=== PATIENT | male | born 1975 | race Caucasian/White ===

== ENCOUNTER 2020-04-07 11:24 | Emergency (ER) | payer OTHER ==
[2020-04-07 11:34] VITALS: RESP 18; TEMP 99
[2020-04-07] MEDS ORDERED: HYDROmorphone 1 MG/ML 1 ML SYRINGE IM STA (11:57)
--- NOTE | 2020-04-07 12:03 | ED ---
Back Pain HPI - General Chief Complaint: Back Pain/Injury Stated Complaint: back pain Time Seen by Provider: 04/07/20 11:40 Source: patient, RN notes reviewed Limitations: no limitations - History of Present Illness Initial Comments: This a 45-year-old male presents emergency Department chief complaint of lumbar back pain with right leg pain. Patient states this has been going on and progressive worsening over the last few weeks. Patient states that he's been seen twice [facility], has seen his PCP 3 times patient states that his been placed on prednisone anti-inflammatories, Flexeril and [place] with no relief of symptoms. Patient states that his only comfortable position is lying flat. Patient states that he has no associated weakness denies any bowel, bladder incontinence or retention he states occasionally has some right leg paresthesias no saddle anesthesias. Patient states pain rates only down his right leg to his toes. Patient states that he's had multiple visits with no imaging. Patient was seen last night and requested imaging and was told to go to another facility. Patient denies any dysuria no abdominal pain. Patient's had no prior surgeries. - Related Data Previous Rx's Medication Instructions Recorded HYDROcodone/APAP 10-325MG [[place] 1 tab PO Q6HR PRN 3 Days #12 tab 04/07/20 10-325] Ibuprofen [Motrin] 800 mg PO Q6HR #30 tab 04/07/20 diazePAM [Valium] 5 mg PO TID PRN 3 Days #9 tab 04/07/20 Allergies Allergy/AdvReac Type Severity Reaction Status Date / Time No Known Allergies Allergy Verified 04/07/20 11:33 Review of Systems ROS Statement: Those systems with pertinent positive or pertinent negative responses have been documented in the HPI. ROS Other: All systems not noted in ROS Statement are negative. Past Medical History Past Medical History: No Reported History History of Any Multi-Drug Resistant Organisms: None Reported Past Surgical History: No Surgical Hx Reported Past Psychological History: No Psychological Hx Reported Smoking Status: Never smoker Past Alcohol Use History: Occasional Past Drug Use History: None Reported General Exam Limitations: no limitations General appearance: alert, in no apparent distress Head exam: Present: atraumatic, normocephalic, normal inspection Eye exam: Present: normal appearance, PERRL, EOMI. Absent: scleral icterus, conjunctival injection, periorbital swelling ENT exam: Present: normal exam, normal oropharynx, mucous membranes moist Neck exam: Present: normal inspection, full ROM. Absent: tenderness, meningismus, lymphadenopathy Respiratory exam: Present: normal lung sounds bilaterally. Absent: respiratory distress, wheezes, rales, rhonchi, stridor Cardiovascular Exam: Present: regular rate, normal rhythm, normal heart sounds. Absent: systolic murmur, diastolic murmur, rubs, gallop, clicks GI/Abdominal exam: Present: soft, normal bowel sounds. Absent: distended, tenderness, guarding, rebound, rigid Extremities exam: Present: other (Lower extremity strength equal bilaterally, neurovascular intact no swelling no erythema clinical equal warmth) Back exam: Present: normal inspection, full ROM (Moderate discomfort with any range of motion), tenderness, paraspinal tenderness (Right lumbar). Absent: vertebral tenderness Neurological exam: Present: alert, oriented X3, CN II-XII intact, reflexes normal. Absent: motor sensory deficit Skin exam: Present: warm, dry, intact, normal color. Absent: rash Course Vital Signs 04/07/20 04/07/20 11:28 13:08 Temperature 99 F Pulse Rate 96 Respiratory 18 18 Rate Blood Pressure 131/83 120/78 O2 Sat by Pulse 100 100 Oximetry Medical Decision Making - Medical Decision Making 45-year-old presented for low back pain. Patient has no red flag symptoms. Neurologically intact does have some radicular symptoms on his right leg. CT is obtained which shows evidence of multilevel disc bulging. Patient's case discussed with on-call orthopedic. Patient will follow-up in office. Patient will be discharged in stable condition return parameters were discussed. Disposition Clinical Impression: Bulging of lumbar intervertebral disc, Lumbar radiculopathy Disposition: HOME SELF-CARE Condition: Fair Instructions (If sedation given, give patient instructions): Acute Low Back Pain (ED) Additional Instructions: Please return to the Emergency Department if symptoms worsen or any other concerns. Prescriptions: Ibuprofen [Motrin] 800 mg PO Q6HR #30 tab HYDROcodone/APAP 10-325MG [[place] 10-325] 1 tab PO Q6HR PRN 3 Days #12 tab PRN Reason: pain diazePAM [Valium] 5 mg PO TID PRN 3 Days #9 tab PRN Reason: spasms Is patient prescribed a controlled substance at d/c from ED?: Yes When asked, does pt state using other controlled substances?: No If prescribed controlled substance>3 days was MAPS reviewed?: Prescribed <3 Days If opioid is for acute pain is fill amount 7 days or less?: Yes If Rx opioid, was Start Talking consent form obtained?: Yes Referrals: Ez Walker MD [Primary Care Provider] - 1-2 days Michael Terrazas DO [Doctor of Osteopathic Medicine] - 1-2 days Time of Disposition: 14:19
[2020-04-07] MEDS ORDERED: DIAZEPAM 5 MG/ML 2 ML INJ IM STA (12:55)
--- NOTE | 2020-04-07 13:09 | CT ---
EXAMINATION TYPE: CT lumbar spine wo con DATE OF EXAM: 04/07/2020 COMPARISON: None HISTORY: 45-year-old male Right sided back pain with radiating pain down the leg without injury. TECHNIQUE: Contiguous axial scanning of the lumbar spine without IV contrast. Coronal and sagittal re constructions performed. CT DLP: 1703.4 mGycm Automated exposure control for dose reduction was used. FINDINGS: Vertebral body heights are preserved and alignment is maintained. Mild disc bulging at multiple levels, largest at L3-L4. No evidence spinal canal stenosis by CT. Possible right intraforaminal disc protrusion at L5-S1 abutting the exiting right L5 nerve root. Disc osteophyte complex here results in mild overall neuroforaminal stenosis here. No prevertebral or paravertebral soft tissue abnormality. IMPRESSION: 1. NO VERTEBRAL COMPRESSION COLLAPSE OR MALALIGNMENT. 2. MILD DISC BULGING AT MULTIPLE LEVELS, LARGEST AT L3-L4 WITHOUT SPINAL CANAL STENOSIS. 3. POSSIBLE RIGHT FORAMINAL DISC PROTRUSION AT L5-S1 WHICH COULD ABUT THE EXITING RIGHT L5 NERVE ROOT . CORRELATE FOR APPROPRIATE RADICULAR SYMPTOMS.
[2020-04-07] MEDS ORDERED: oxyCODONE-APAP 5-325MG 1 EACH TAB PO STA (14:20)
[2020-04-07 14:37] VITALS: BP 120/75; PULSE 67
== END 2020-04-07 14:36 | disposition home or self-care (01) ==
LOC: EC 11:24
DX: M51.26 Other intervertebral disc displacement, lumbar region (principal); M54.16 Radiculopathy, lumbar region
CPT/HCPCS: 72131; 99283; 96372 ×2; J3360; J1170

== ENCOUNTER 2020-04-08 06:44 | Observation (INO) | payer OTHER ==
[2020-04-08] MEDS ORDERED: SODIUM CHLORIDE 0.9% 500 ML 500 ML IV ONE (07:16)
[2020-04-08] MEDS ORDERED: HYDROmorphone 1 MG/ML 1 ML SYRINGE IVP STA ×2 (07:16→08:21)
[2020-04-08] MEDS ORDERED: DEXAMETHASONE SOD PHOSPHATE 10 MG/ML 1 ML VIAL IV STA (07:16)
[2020-04-08] MEDS ORDERED: DIAZEPAM 5 MG/ML 2 ML INJ IVP STA (07:18)
[2020-04-08 07:43] LABS: Basophils # (A) 0.1 k/uL (0-0.2); Basophils % (A) 1 %; Eosinophils # (A) 0.2 k/uL (0-0.7); Eosinophils % (A) 3 %; HCT 50.4 % (39.0-53.0); HGB 16.4 gm/dL (13.0-17.5); Lymphocytes # (A) 1.9 k/uL (1.0-4.8); Lymphocytes % (A) 21 %; MCH 29.9 pg (25.0-35.0); MCHC 32.4 g/dL (31.0-37.0); MCV 92.2 fL (80.0-100.0); Mean Platelet Volume 6.2; Monocytes # (A) 0.4 k/uL (0-1.0); Monocytes % (A) 5 %; Neutrophils # (A) 6.3 k/uL (1.3-7.7); Neutrophils % (A) 70 %; Platelet Count 318 k/uL (150-450); RBC 5.47 m/uL (4.30-5.90); RDW 12.5 % (11.5-15.5); WBC 8.9 k/uL (3.8-10.6)
[2020-04-08 07:54] LABS: African American GFR (CKD) >90 (>60 ml/min/1.73 sqM); Anion Gap 8 mmol/L; Blood Urea Nitrogen 20 mg/dL (9-20); Calcium 9.3 mg/dL (8.4-10.2); Carbon Dioxide 27 mmol/L (22-30); Chloride 101 mmol/L (98-107); Glucose 108 mg/dL (74-99); Non-African American GFR(CKD) >90 (>60 ml/min/1.73 sqM); Potassium 4.2 mmol/L (3.5-5.1); Sodium 136 mmol/L (137-145)
--- NOTE | 2020-04-08 07:58 | ED ---
General Adult HPI - General Chief complaint: Back Pain/Injury Stated complaint: back pain Time Seen by Provider: 04/08/20 07:06 Source: patient, RN notes reviewed, old records reviewed Mode of arrival: wheelchair - History of Present Illness Initial comments: 45-year-old male presenting for evaluation of back pain. Patient has had back pain which is been worsening over the past several weeks. He denies any specific injury. He's been seen at multiple hospitals including this institution for back pain. He was seen here yesterday and CT of the lumbar spine was performed which showed some multilevel disc disease. Patient states he was discharged after receiving [place], Motrin and Valium. He states that his symptoms were momentarily improved however after these medications were off he was unable to ambulate. He was brought in by his mother and father and was essentially unable to move secondary to the pain. He does report radicular symptoms to the right lateral leg. No bowel or bladder dysfunction. No lower extremity weakness. - Related Data Previous Rx's Medication Instructions Recorded HYDROcodone/APAP 10-325MG [[place] 1 tab PO Q6HR PRN 3 Days #12 tab 04/07/20 10-325] Ibuprofen [Motrin] 800 mg PO Q6HR #30 tab 04/07/20 diazePAM [Valium] 5 mg PO TID PRN 3 Days #9 tab 04/07/20 Allergies Allergy/AdvReac Type Severity Reaction Status Date / Time No Known Allergies Allergy Verified 04/07/20 11:33 Review of Systems ROS Statement: Those systems with pertinent positive or pertinent negative responses have been documented in the HPI. ROS Other: All systems not noted in ROS Statement are negative. Past Medical History Past Medical History: No Reported History Additional Past Medical History / Comment(s): buldging discs History of Any Multi-Drug Resistant Organisms: None Reported Past Surgical History: No Surgical Hx Reported Past Psychological History: No Psychological Hx Reported Smoking Status: Never smoker Past Alcohol Use History: Occasional Past Drug Use History: None Reported General Exam General appearance: alert, in distress Head exam: Present: atraumatic, normocephalic Eye exam: Present: normal appearance, PERRL ENT exam: Present: normal exam Neck exam: Present: normal inspection. Absent: tenderness, meningismus Respiratory exam: Present: normal lung sounds bilaterally. Absent: respiratory distress, wheezes Cardiovascular Exam: Present: regular rate, normal rhythm GI/Abdominal exam: Present: soft. Absent: distended, tenderness, guarding Extremities exam: Present: normal inspection, normal capillary refill Back exam: Present: paraspinal tenderness Neurological exam: Present: alert, oriented X3, CN II-XII intact, other (Patellar reflexes are diminished bilaterally). Absent: motor sensory deficit Psychiatric exam: Present: normal affect, normal mood Skin exam: Present: warm, dry, intact. Absent: cyanosis, diaphoretic Course Vital Signs 04/08/20 07:02 Temperature 98.7 F Pulse Rate 80 Respiratory 18 Rate Blood Pressure 136/87 O2 Sat by Pulse 100 Oximetry Medical Decision Making - Medical Decision Making 45-year-old male presenting with recurrent back pain. Patient has had worsening back pain over the past [address] lumbar spine yesterday at this institution which showed multilevel disc bulging and nerve root compression at L5 consistent with the patient's radicular symptoms. Patient has been on [place], Motrin, Valium with basically no relief. In the emergency department and receives Toradol, Valium, Dilaudid, Decadron, multiple doses without improvement. He will be admitted for pain control and orthopedic consultation. - Lab Data Result diagrams: 04/08/20 07:30 04/08/20 07:30 Lab Results 04/08/20 04/08/20 Range/Units 07:30 07:30 WBC 8.9 (3.8-10.6) k/uL RBC 5.47 (4.30-5.90) m/uL Hgb 16.4 (13.0-17.5) gm/dL Hct 50.4 (39.0-53.0) % MCV 92.2 (80.0-100.0) fL MCH 29.9 (25.0-35.0) pg MCHC 32.4 (31.0-37.0) g/dL RDW 12.5 (11.5-15.5) % Plt Count 318 (150-450) k/uL Neutrophils % 70 % Lymphocytes % 21 % Monocytes % 5 % Eosinophils % 3 % Basophils % 1 % Neutrophils # 6.3 (1.3-7.7) k/uL Lymphocytes # 1.9 (1.0-4.8) k/uL Monocytes # 0.4 (0-1.0) k/uL Eosinophils # 0.2 (0-0.7) k/uL Basophils # 0.1 (0-0.2) k/uL Sodium 136 L (137-145) mmol/L Potassium 4.2 (3.5-5.1) mmol/L Chloride 101 (98-107) mmol/L Carbon Dioxide 27 (22-30) mmol/L Anion Gap 8 mmol/L BUN 20 (9-20) mg/dL Creatinine 0.91 (0.66-1.25) mg/dL Est GFR (CKD-EPI)AfAm >90 (>60 ml/min/1.73 sqM) Est GFR (CKD-EPI)NonAf >90 (>60 ml/min/1.73 sqM) Glucose 108 H (74-99) mg/dL Calcium 9.3 (8.4-10.2) mg/dL Disposition Clinical Impression: Bulging of lumbar intervertebral disc, Lumbar radiculopathy, Intractable back pain Disposition: ADMITTED IP TO THIS [facility] Condition: Stable Is patient prescribed a controlled substance at d/c from ED?: No Referrals: Ez Walker MD [Primary Care Provider] - 1-2 days Decision to Admit Reason: Admit from EC Decision Date: 04/08/20 Decision Time: 08:25
[2020-04-08] MEDS ORDERED: ACETAMINOPHEN TAB 325 MG TAB PO PRN (08:21)
[2020-04-08] MEDS ORDERED: KETOROLAC 15 MG/ML 1 ML VIAL IVP PRN (08:21)
[2020-04-08] MEDS ORDERED: NALOXONE 0.4 MG/ML 1 ML VIAL IV PRN (08:21)
[2020-04-08] MEDS ORDERED: KETOROLAC 15 MG/ML 1 ML VIAL IVP STA (08:21)
[2020-04-08] MEDS ORDERED: HYDROmorphone 0.5 MG/0.5 ML SYRINGE IVP PRN (08:21)
[2020-04-08] MEDS ORDERED: DIAZEPAM 5 MG/ML 2 ML INJ IVP PRN (08:23)
[2020-04-08 08:43] LABS: Appearance,Urine Clear (Clear); Bilirubin,Urine Negative (Negative); Blood,Urine Negative (Negative); Color,Urine Light Yellow; Glucose,Urine (UA) Negative (Negative); Ketones,Urine Negative (Negative); Leukocyte Esterase,Urine Negative (Negative); Nitrite,Urine Negative (Negative); PH, Urine 6.5 (5.0-8.0); Protein,Urine Negative (Negative); Specific Gravity,Urine 1.011 (1.001-1.035); Urobilinogen,Urine <2.0 mg/dL (<2.0)
[2020-04-08] MEDS ORDERED: HYDROcodone/APAP 10-325MG 1 EACH TAB PO PRN (10:36)
[2020-04-08] MEDS ORDERED: CYCLOBENZAPRINE 10 MG TAB PO PRN (10:36)
[2020-04-08] MEDS: HYDROmorphone 1 MG/ML 1 ML SYRINGE IVP PRN ×3 (10:42→21:01)
[2020-04-08] MEDS: HYDROcodone/APAP 5-325MG 1 EACH TAB PO SCH ×3 (12:00→17:11)
[2020-04-08] MEDS: FAMOTIDINE 20 MG TAB PO SCH ×2 (12:01→21:01)
[2020-04-08] MEDS: CYCLOBENZAPRINE 10 MG TAB PO SCH ×3 (12:01→21:01)
[2020-04-08] MEDS: NAPROXEN 250 MG TAB PO SCH ×3 (12:02→21:02)
[2020-04-08] MEDS: ENOXAPARIN 40 MG/0.4 ML SYRINGE SQ SCH (12:04)
--- NOTE | 2020-04-08 14:18 | XR ---
Pre-MRI orbits HISTORY: Pre-MRI, intractable back pain, right lower extremity radiculopathy 3 views of the orbits Bone mineralization is maintained. Orbits are intact. No fluid level in the paranasal sinuses to sugg est acute sinusitis. IMPRESSION: No radiographic foreign body.
--- NOTE | 2020-04-08 15:11 | P.CNOR ---
History of Present Illness - [facility] Consult date: 04/08/20 Consult reason: low back pain History of present illness: This is a 45-year-old male who is admitted through the emergency department with acute onset severe intractable low back pain with right lower extremity ra diculopathy. Patient states that he has no known history of back issues. About 2-3 weeks ago he began experiencing some low back pain. 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 He does not recall any acute injury or trauma. He states that his pain became worse over the past week or so. He was no longer able to ambulate secondary to pain and began having numbness and tingling down the right leg. He denies any bladder or bowel dysfunction. He is admitted to internal medicine and we're consulted for orthopedic spine evaluation. Past Medical History Past Medical History: No Reported History Additional Past Medical History / Comment(s): buldging discs History of Any Multi-Drug Resistant Organisms: None Reported Past Surgical History: No Surgical Hx Reported Past Anesthesia/Blood Transfusion Reactions: No Reported Reaction Additional Past Anesthesia/Blood Transfusion Reaction / Comm: N/A Past Psychological History: No Psychological Hx Reported Smoking Status: Never smoker Past Alcohol Use History: Occasional Past Drug Use History: None Reported - Past Family History Father Additional Family Medical History / Comment(s): Auto-Immune Disorder (similar to Lupus) Mother Family Medical History: AFIB Medications and Allergies Home Medications Medication Instructions Recorded Confirmed Type HYDROcodone/APAP 10-325MG [[place] 1 tab PO Q6HR PRN 3 Days #12 tab 04/07/20 04/08/20 Rx 10-325] Ibuprofen [Motrin] 800 mg PO Q6HR #30 tab 04/07/20 04/08/20 Rx diazePAM [Valium] 5 mg PO TID PRN 3 Days #9 tab 04/07/20 04/08/20 Rx Citalopram Hydrobromide 20 mg PO Q48H 04/08/20 04/08/20 History [Citalopram HBr] Cyclobenzaprine HCl 10 mg PO TID PRN 04/08/20 04/08/20 History Allergies Allergy/AdvReac Type Severity Reaction Status Date / Time No Known Allergies Allergy Verified 04/07/20 11:33 Physical Examination This is a pleasant 45-year-old male in no acute distress. He is alert and shannan ented 3. Exam of the head neck reveal no obvious deformity. He has full cervical spine motion without difficulty or pain. Exam of the upper extremities reveals no obvious deformity. He has no pain with motion of the shoulders, elbows, wrists or fingers. Exam of the low back reveals deformity. He has mild pain to palpation about the lower lumbar spine and right sided paraspinal musculature. Straight leg raise is positive, producing pain to the right buttock. Exam of the lower extremities reveals no obvious deformity. He is able to lift the right leg off the bed about an inch with significant pain. He has weakness with the great toe dorsiflexion against resistance compared to the left foot. He is able to wiggle foot and ankle and toes bilaterally. Neurovascular status to the lower extremities grossly intact. Results Computed tomography scan of the lumbar spine performed in the emergency Department reveals some disc bulging at multiple levels as well as a possible foraminal encroachment at L5-S1. No acute fractures identified. - Labs Labs: Abnormal Lab Results - Last 24 Hours (Table) 04/08/20 Range/Units 07:30 Sodium 136 L (137-145) mmol/L Glucose 108 H (74-99) mg/dL H & H 04/08/20 Range/Units 07:30 Hgb 16.4 (13.0-17.5) gm/dL Hct 50.4 (39.0-53.0) % Result Diagrams: 04/08/20 07:30 04/08/20 07:30 Assessment and Plan (1) Bulging of lumbar intervertebral disc Current Visit: Yes Status: Acute Code(s): M51.26 - OTHER INTERVERTEBRAL DISC DISPLACEMENT, LUMBAR REGION SNOMED Code(s): 624867046 (2) Intractable back pain Current Visit: Yes Status: Acute Code(s): M54.9 - DORSALGIA, UNSPECIFIED SNOMED Code(s): 480990003 (3) Lumbar radiculopathy Current Visit: Yes Status: Acute Code(s): M54.16 - RADICULOPATHY, LUMBAR REGION SNOMED Code(s): 085570733 Plan: The clinical and radiographic findings are discussed with the patient. It is recommended he have an MRI for further evaluation for possible herniated disc. I have increased the site Medrol to 80 mg every 8 hours 3 doses. We will await MRI results and proceed as indicated at that time.
[2020-04-08] MEDS ORDERED: methylPREDNISolone SOD SUCCI 40 MG/ML 1 ML VIAL IV SCH (16:00)
[2020-04-08] MEDS: methylPREDNISolone SOD SUCCI 125 MG/2 ML VIAL IV SCH (17:10)
--- NOTE | 2020-04-08 19:57 | P.HPIM ---
History of Present Illness H&P Date: 04/08/20 Chief Complaint: Increasing low back pain History of presenting complaint: This is a very pleasant 45-year-old patient of Dr. Ez Walker. Patient's had occasional low back pain off and on for some time. For 3 weeks patient been having progressively increasing lower back pain. About 2 weeks ago patient went to the chiropractor had some end ablation done. [place] a bit better. But a couple of days. Become much worse and by Wednesday was finding it difficult to walk. Subsequently he went to [place] [facility] week ago was given steroids antispasmodic and inflammatory central. Some improvement in those symptoms currently to get worse then. Started having some trouble walking with pain radiating from the right buttock area down to the toe. No trouble with bowel or urine. No fever no chills. Has presented to ER. Yesterday. Had a computed tomography scan of the spine done. Discharged home with medications. Return to the ER this morning. With worsening symptoms. Review of systems: GEN.: None EYES: None HEENT: None NECK: None RESPIRATORY: None CARDIOVASCULAR: None GASTROINTESTINAL: None GENITOURINARY: None MUSCULOSKELETAL: As above LYMPHATICS: None HEMATOLOGICAL: None PSYCHIATRY: None NEUROLOGICAL: Pain down the right leg some difficulty walking Past medical history: Intermittent chronic low back pain Social history: Lives with his fiance Adri. Does not smoke. 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 Physical examination: VITAL SIGNS: 98.7, 80, 18, 136/87, 100% on room air upon admission GENERAL: BMI 28.6, laying in bed, somewhat uncomfortable. EYES: Pupils equal. Conjunctiva normal. HEENT: External appearance of nose and ears normal, oral cavity grossly normal. NECK: JVD not raised; masses not palpable. HEART: First and second heart sounds are normal; no edema. LUNGS: Respiratory rate normal; clear to auscultation. ABDOMEN: Soft, nontender, liver spleen not palpable, no masses palpable. PSYCH: Alert and oriented x3; mood and affect normal MUSCULAR skeletal: Limited bilateral left leg elevation.. NEUROLOGICAL: [Cranial nerves grossly intact; no facial asymmetry, some elevation able to lift his legs. Knee reflexes are equal LYMPHATICS: No lymph nodes palpable in the axilla and neck INVESTIGATIONS, reviewed in the clinical context: White count 8.9 hemoglobin 16.4 platelets 318 potassium 4.2 creatinine 0.91 UA negative Computed tomography scan of the spine without contrast-mild disc bulging at multiple level largest at L3-L4 without spinal canal stenosis. Possible right forearm and on this protrusion at L5-S1. Assessment: -Acute low back pain from ID and disc at multiple levels patient. L3-L4 level. Also forearm and now pressure at with protrusion at L5-S1 with right lower extremity that radicalur pain -Gait dysfunction from above - Plan: Patient will need an MRI. Orthopedic spine was consulted. Patient started IV Solu-Medrol, naproxen, antispasmodic. Care was discussed the patient question also. Lovenox for DVT prophylaxis. Past Medical History Past Medical History: No Reported History Additional Past Medical History / Comment(s): buldging discs History of Any Multi-Drug Resistant Organisms: None Reported Past Surgical History: No Surgical Hx Reported Past Psychological History: No Psychological Hx Reported Smoking Status: Never smoker Past Alcohol Use History: Occasional Past Drug Use History: None Reported - Past Family History Father Additional Family Medical History / Comment(s): Auto-Immune Disorder (similar to Lupus) Mother Family Medical History: AFIB Medications and Allergies Home Medications Medication Instructions Recorded Confirmed Type HYDROcodone/APAP 10-325MG [[place] 1 tab PO Q6HR PRN 3 Days #12 tab 04/07/20 Rx 10-325] Ibuprofen [Motrin] 800 mg PO Q6HR #30 tab 04/07/20 04/08/20 Rx diazePAM [Valium] 5 mg PO TID PRN 3 Days #9 tab 04/07/20 04/08/20 Rx Citalopram Hydrobromide 20 mg PO Q48H 04/08/20 04/08/20 History [Citalopram HBr] Cyclobenzaprine HCl 10 mg PO TID PRN 04/08/20 04/08/20 History Allergies Allergy/AdvReac Type Severity Reaction Status Date / Time No Known Allergies Allergy Verified 04/07/20 11:33 Physical Exam Vitals: Vital Signs Temp Pulse Pulse Resp BP BP Pulse Ox 04/08/20 10:34 98.1 F 72 19 135/81 99 04/08/20 09:06 98.7 F 73 18 121/74 99 04/08/20 08:08 70 18 121/74 99 04/08/20 07:02 98.7 F 80 18 136/87 100 Intake and Output 04/07/20 04/08/20 04/08/20 22:59 06:59 14:59 Other: Weight 127.006 kg Results CBC & Chem 7: 04/08/20 07:30 04/08/20 07:30 Labs: Abnormal Lab Results - Last 24 Hours (Table) 04/08/20 Range/Units 07:30 Sodium 136 L (137-145) mmol/L Glucose 108 H (74-99) mg/dL
--- NOTE | 2020-04-08 22:01 | MR ---
EXAMINATION TYPE: MR lumbar spine wo con DATE OF EXAM: 04/08/2020 COMPARISON: CT lumbar spine from yesterday. HISTORY: Intractable low back pain TECHNIQUE: Multiplanar, multisequence imaging of the lumbar spine is performed without IV contrast. FINDINGS: Slight levoconvex scoliotic curvature positioning is redemonstrated. Sagittal images of the lumbar spine show vertebral body heights to remain satisfactory. Loss of normal lumbar lordosis on s agittal images. Some multilevel disc desiccation greatest L4-L5 level. Mild to moderate disc space na rrowing L5-S1 level. The conus medullaris is normal in position and signal ending superior L1 level. The bone marrow signal intensity is within normal limits. Axial images show T12-L1, L1-L2, and L2-L3 levels al to appear within normal limits. Axial images at L3-L4 level shows mild broad-based disc bulge but the spinal canal is preserved and b ilateral neural foramina are patent. Axial images at L4-L5 level are thought within normal limits. Axial images at L5-S1 level shows mild facet arthropathy bilaterally. Spinal canal is preserved as is increased epidural fat at this level. There is eccentric focal right foraminal/extraforaminal disc p rotrusion confirmed encroaching on exiting right L5 nerve sagittal images 13 and 14 and axial image 3 . Paraspinal muscle bulk is maintained. Retroaortic left renal vein redemonstrated which is normal vari ant. Slightly prominent but subcentimeter left-sided periaortic lymph nodes again seen. IMPRESSION: Confirmation of eccentric right L5-S1 disc herniation encroaching on exiting right L5 ner ve.
[2020-04-09] MEDS: HYDROcodone/APAP 5-325MG 1 EACH TAB PO SCH ×3 (00:47→12:09)
[2020-04-09] MEDS: methylPREDNISolone SOD SUCCI 125 MG/2 ML VIAL IV SCH ×2 (00:47→08:40)
[2020-04-09] MEDS: HYDROmorphone 1 MG/ML 1 ML SYRINGE IVP PRN (04:47)
[2020-04-09 04:58] VITALS: RESP 16
--- NOTE | 2020-04-09 08:05 | P.PN ---
Progress Note - Text Progress Note Date: 04/09/20 He is still complaining significant pain and right lower extremity. He says the pain may have settled a little bit since yesterday with medications of steroid and the Dilaudid. He is able to void he is not having specific weakness at this point. He denies any nausea or vomiting. On exam he's afebrile stable vital signs Is positive straight leg raise on the right He has sustained dorsal flexion plantar flexion and EHL His calf and thighs is soft nontender His back is clear The MRI of his lumbar spine shows a L5-S1 far lateral subarticular disc herniation with stenosis at the exiting nerve root Assessment and plan Far lateral disc herniation L5-S1 Right lower extremity radiculopathy Intractable low back pain and leg pain The patient has a significant part lateral disc herniation L5-S1 which correlates well with his lower extremity symptoms. He is not having significant weakness at this point and I think he can make some further progress with conservative treatment. He has made some progress with IV steroid and education. It is okay for him to mobilize as he tolerates. I think he can do better with an interventional pain management injection likely with a L5-S1 transforaminal epidural steroid injection. Hopefully he'll be able to do that today with pain management. We have consult them. He'll be nothing by mouth in case he is able to have a procedure. If he is doing well with conservative treatment and interventional pain management and he can consider continuing conservative care. If he is not having benefit he could be a candidate for laminectomy and discectomy. We like to hold off on surgical intervention acutely and plan to see him as an outpatient to consider other treatments based on how well he does with further conservative care. I discussed this with him answers questions and he is agreeable.
[2020-04-09] MEDS: FAMOTIDINE 20 MG TAB PO SCH ×2 (08:40→10:06)
[2020-04-09] MEDS: CYCLOBENZAPRINE 10 MG TAB PO SCH ×2 (08:40→15:14)
[2020-04-09] MEDS: ENOXAPARIN 40 MG/0.4 ML SYRINGE SQ SCH ×2 (08:41→10:06)
[2020-04-09] MEDS ORDERED: CITALOPRAM HYDROBROMIDE 20 MG TAB PO SCH (09:00)
[2020-04-09] MEDS: NAPROXEN 250 MG TAB PO SCH ×2 (10:07→15:14)
--- NOTE | 2020-04-09 10:31 | P.PAINCN ---
History of Present Illness - Reason for Consult Consult date: 04/09/20 - History of Present Illness This is 45 years old male,who is admitted to [facility] because ofsevere intractable low back pain started 3 weeks ago, the intensity of the pain increased over the last few days, the pain severely intense localized in the low back area with radiation to the right lower extremity, associated with some numbness and tingling sensation, patient denies any initiating event, no history of trauma low accident, but she reported that he does a lot of lifting at work, he denies any fever or night sweats was no change in the bowel movement or urination, MRI of the lumbar spine showed that he had a lumbar herniated disc disease at L5-S1 Past Medical History Past Medical History: No Reported History Additional Past Medical History / Comment(s): buldging discs History of Any Multi-Drug Resistant Organisms: None Reported Past Surgical History: No Surgical Hx Reported Past Anesthesia/Blood Transfusion Reactions: No Reported Reaction Additional Past Anesthesia/Blood Transfusion Reaction / Comm: N/A Past Psychological History: No Psychological Hx Reported Smoking Status: Never smoker Past Alcohol Use History: Occasional Past Drug Use History: None Reported - Past Family History Father Additional Family Medical History / Comment(s): Auto-Immune Disorder (similar to Lupus) Mother Family Medical History: AFIB Medications and Allergies Home Medications Medication Instructions Recorded Confirmed Type HYDROcodone/APAP 10-325MG [[place] 1 tab PO Q6HR PRN 3 Days #12 tab 04/07/20 04/08/20 Rx 10-325] Ibuprofen [Motrin] 800 mg PO Q6HR #30 tab 04/07/20 04/08/20 Rx diazePAM [Valium] 5 mg PO TID PRN 3 Days #9 tab 04/07/20 04/08/20 Rx Citalopram Hydrobromide 20 mg PO Q48H 04/08/20 04/08/20 History [Citalopram HBr] Cyclobenzaprine HCl 10 mg PO TID PRN 04/08/20 04/08/20 History Allergies Allergy/AdvReac Type Severity Reaction Status Date / Time No Known Allergies Allergy Verified 04/07/20 11:33 Physical Exam Vitals: Vital Signs Temp Pulse Resp BP Pulse Ox 04/09/20 04:40 98.2 F 67 16 122/74 97 04/08/20 21:00 98.9 F 75 18 153/74 97 04/08/20 12:34 99 F 69 18 125/79 98 04/08/20 10:34 98.1 F 72 19 135/81 99 Intake and Output 04/08/20 04/09/20 04/09/20 22:59 06:59 14:59 Intake Total 500 250 Balance 500 250 Intake: Oral 500 250 Other: Voiding Method Urinal # Voids 1 2 Physical Examinations : -Constitutiona : Cooperative , not in acute distress . -HEENT : nech : supple , no Lymphadenopathy , normal thyroid size . : eyes : no ptosis , no icterus, no photoph obia . - neurologic : Cranial nerve II to XII intact , no focal neurological deffecit . -psychatric : alert , oriented X 3 , appropriate affect , intact judgment and insight . -Lymphatic : no Lymphadenopathy . - musculoskeltal : Lumber spine moter stegnth lower extremities ,thigh and legs 4-5/5 Right side , 5/5 Left side deep tendon reflexes : normal Knee Jerk , normal ankle Jerk lumber facet Loading Test =positive Right , positive Left Range of motion of the lumbar spine Flexion 30 degrees, extension 10 degrees strait leg raising test = positive at 30 degree on the right side is negative on the left side Fabere test= positive Right , and egative LT . mild tenderness over the Sacroiliac joint on the Right , and Left sides Results CBC & Chem 7: 04/08/20 07:30 04/08/20 07:30 Comments: MRI of the lumbar spine= L5-S1 herniated disc, mild lumbar facet arthropathy Assessment and Plan Plan: assessment and plan=1-lumbar herniated disc disease at L5-S1 2-lumbar radiculopathy. 3-lumbar spondylosis with lumbar facet arthropathy without myelopathy. Patient could benefit from lumbar epidural steroid injection at L5-S1 right paramedian approach Time with Patient: Less than 30 PQRS Measure Charge Sheet PQRS Narrative: Do You Want the Pneumonia No Vaccine AT THIS TIME? Blood Pressure [Left Arm] 122/74 Blood Pressure 121/74 Pain Intensity [Back] 8 Pain Intensity 5 Pain Scale Used Numeric (1 - 10) Scale Used Numeric (1 - 10) Home Medications: Ambulatory Orders HYDROcodone/APAP 10-325MG [[place] 10-325] 1 tab PO Q6HR PRN 3 Days #12 tab 04/07/20 Ibuprofen [Motrin] 800 mg PO Q6HR #30 tab 04/07/20 diazePAM [Valium] 5 mg PO TID PRN 3 Days #9 tab 04/07/20 Citalopram Hydrobromide [Citalopram HBr] 20 mg PO Q48H 04/08/20 Cyclobenzaprine HCl 10 mg PO TID PRN 04/08/20
[2020-04-09 11:15] VITALS: BP 136/74; PULSE 77; TEMP 97.9
[2020-04-09] MEDS ORDERED: LACTATED RINGERS 1,000 ML IV ONE (11:15)
[2020-04-09] MEDS ORDERED: fentaNYL (PF) 50 MCG/ML 2 ML AMP ONE (11:21)
[2020-04-09] MEDS ORDERED: MIDAZOLAM 2 MG/2 ML VIAL ONE (11:21)
[2020-04-09] MEDS ORDERED: methylPREDNISolone ACETATE 40 MG/ML 1 ML VIAL ONE (11:21)
[2020-04-09] MEDS ORDERED: IOPAMIDOL M200 10 ML VIAL ONE (11:21)
--- NOTE | 2020-04-09 11:36 | P.PCN ---
Date of Procedure: 04/09/20 Procedure(s) Performed: PREOPERATIVE DIAGNOSIS: 1- Lumbar herniated Disc Diseases 2-Lumbar spondylosis with Facet arthropathy without myelopathy. 3-lumbar radiculopathy POSTOPERATIVE DIAGNOSIS: 1-Lumber herniatedDisc Diseases 2-Lumbar spondylosis with Facet arthropathy without myelopathy 3-lumbar radiculopathy. PROCEDURE 1. Lumbar epidural steroid injection under fluoroscopic guidance at the L5-S1 level. (right paramedian approach ) (Fluoroscopy imaging was available in radiology department) 2. Lumbar epidurogram. ANESTHESIA: Local with 1% lidocaine 3 ml and , moderate sedation with intravenous Versed 2 mg ,and fentanyle 50 Mcg EBL: Minimal PROCEDURE INDICATION: The patient with low back pain and radiculitis symptoms unresponsive to conservative treatment. Fluoroscopy was used to optimize visualization of the needle placement and to maximize safety. PROCEDURE DESCRIPTION / TECHNIQUE: The patient was seen and identified in the preoperative area. Risks, benefits, complications including but not limited to infections ,bleeding ,allergic reaction to the medications ,nerve damage and not complete pain releife , and alternatives were discussed with the patient. The patient agreed to proceed with the procedure and signed the consent. IV was started, and vital signs were stable. Patient was taken to the OR and time out was completed. The patient was placed in the prone position on procedure table and a pillow was placed under the abdomen to reduce lumbar lordosis. The lumbosacral area was prepped and draped in the usual sterile fashion.ere closely monitored during the procedure. Conscious sedation was used during the procedure to decrease patients anxiety. Vital signs was monitered during the entire procedure. Using anterior-posterior fluoroscopy, the L5-S1 interlaminar space was identified and the skin over this site was marked and then infiltrated with 1% lidocaine subcutaneously. Subsequently, a 20-gauge Tuohy epidural needle was inserted and advanced toward the epidural space using the ``Loss of resistance technique and guided by AP and lateral fluoroscopy. The correct needle position in the epidural space was verified with the injection of 2 mL of the water soluble contrast dye Isovue 200 contrast and observing an excellent epidurogram with the epidural spread of the dye, after negative aspiration for blood and CSF and in the absence of paresthesias. Again after negative aspiration, a 6 ml mixture containing 80 mg of Depo-medrol , and 2 ml of preservative free Normal Saline, and 2 ml of preservative free lidocaine 1% solution was injected and a washout of epidurogram was seen. Needle was withdrawn intact, skin was cleansed, and bandages were applied. COMPLICATIONS: None DISPOSITION / PLANS: The patient was placed in a supine position and transferred to the recovery area in a stable condition for observation. There was no evidence of lower extremity motor or sensory deficit after the procedure. Patient was discharged from the recovery room after meeting discharge criteria. Home discharge instructions were given to the patient by the staff. The patient was reexamined prior to discharge. The patient will schedule a follow up in the clinic in 2-4 weeks.
--- NOTE | 2020-04-09 12:06 | FL ---
EXAMINATION TYPE: FL guided pain mgmt statistic DATE OF EXAM: 04/09/2020 FLUOROSCOPY Fluoroscopy time of 1 seconds was used during lumbar epidural steroid injection. 1 image/s document/ s the procedure.
--- NOTE | 2020-04-09 23:49 | P.DS ---
Providers Date of admission: 04/08/20 08:21 Expected date of discharge: 04/09/20 Attending physician: Abelardo Del Toro Consults: 04/08/20 08:22 Consult Physician Routine Consulting Provider: Luiz Kiser Consult Reason/Comments: Intractable back pain Do you want consulting provider notified?: Yes 04/09/20 07:36 Consult to Anesthesia Routine Consulting Provider: Anesthesia,Services Consult Reason/Comments: for possible L5S1 TF-DAYO for HNP L5S1 Primary care physician: Ez Walker [facility] Course: Chief Complaint: Increasing low back pain History of presenting complaint: This is a very pleasant 45-year-old patient of Dr. Ez Walker. Patient's had occasional low back pain off and on for some time. For 3 weeks patient been having progressively increasing lower back pain. About 2 weeks ago patient went to the chiropractor had some end ablation done. [place] a bit better. But a couple of days. Become much worse and by Wednesday was finding it difficult to walk. Subsequently he went to [facility] week ago was given steroids antispasmodic and inflammatory central. Some improvement in those symptoms currently to get worse then. Started having some trouble walking with pain radiating from the right buttock area down to the toe. No trouble with bowel or urine. No fever no chills. Has presented to ER. Yesterday. Had a computed to mography scan of the spine done. Discharged home with medications. Return to the ER this morning. With worsening symptoms. Patient was treated with steroids, and inflammatory, antispasmodics. Doing better. Today-patient able to walk from his bed to the stretcher on his own. When done for the lumbar epidural. Earlier discussed length with the patient his medications and follow-up. Questions answered. Consultation: Dr. Osorio from orthopedic spine Dr. Miller from pain management Physical examination: VITAL SIGNS: 97.9, 77, 16, 136/74, 98% room air GENERAL: BMI 28.6, laying in bed, comfortable. EYES: Pupils equal. Conjunctiva normal. NECK: JVD not raised; masses not palpable. HEART: First and second heart sounds are normal; no edema. LUNGS: Respiratory rate normal; clear to auscultation. ABDOMEN: Soft, nontender, liver spleen not palpable, no masses palpable. PSYCH: Alert and oriented x3; mood and affect normal NEUROLOGICAL-witnessed the patient get up from the bed walk to the stretcher. INVESTIGATIONS, reviewed in the clinical context: White count 8.9 hemoglobin 16.4 platelets 318 potassium 4.2 creatinine 0.91 UA negative Computed tomography scan of the spine without contrast-mild disc bulging at multiple level largest at L3-L4 without spinal canal stenosis. Possible right forearm and on this protrusion at L5-S1. MRI lumbar spine shows a centric right L5-S1 disc herniation encroaching on right L5 nerve. Some of the findings of the levels more detail in the chart. Assessment: -Acute low back pain from herniated disc at multiple levels patient. L3-L4 level. pressure at with protrusion at L5-S1 with right lower extremity - radicalur pain -Gait dysfunction from above-improving -Status post epidural lumbar injection- steroid Disposition: Home Patient Condition at Discharge: Stable Plan - Discharge Summary Discharge Rx Participant: No New Discharge Prescriptions: New Naproxen [Naprosyn] 250 mg PO TID #60 tab Famotidine [Pepcid] 20 mg PO BID #60 tab Acetaminophen Tab [Tylenol] 650 mg PO Q6HR PRN tab PRN Reason: Mild Pain Or Fever > 100.5 predniSONE 10 mg PO DAILY #30 tab Continue HYDROcodone/APAP 10-325MG [[place] 10-325] 1 tab PO Q6HR PRN 3 Days #12 tab PRN Reason: pain Citalopram Hydrobromide [Citalopram HBr] 20 mg PO Q48H Changed Cyclobenzaprine HCl 10 mg PO TID #40 tab Discontinued Ibuprofen [Motrin] 800 mg PO Q6HR #30 tab diazePAM [Valium] 5 mg PO TID PRN 3 Days #9 tab PRN Reason: spasms Discharge Medication List HYDROcodone/APAP 10-325MG [[place] 10-325] 1 tab PO Q6HR PRN 3 Days #12 tab [Rx] Citalopram Hydrobromide [Citalopram HBr] 20 mg PO Q48H 04/08/20 [History] Acetaminophen Tab [Tylenol] 650 mg PO Q6HR PRN tab 04/09/20 [Rx] Cyclobenzaprine HCl 10 mg PO TID #40 tab 04/09/20 [Rx] Famotidine [Pepcid] 20 mg PO BID #60 tab 04/09/20 [Rx] Naproxen [Naprosyn] 250 mg PO TID #60 tab 04/09/20 [Rx] predniSONE 10 mg PO DAILY #30 tab 04/09/20 [Rx] Follow up Appointment(s)/Referral(s): Luiz Ksier DO [Doctor of Osteopathic Medicine] - 04/16/20 1:15 pm Gene Garcia [facility] [REFERRING] - 04/17/20 10:30 am [facility] [NON-STAFF] - 3 Weeks (pt to call to make appt) Patient Instructions/Handouts: Famotidine (By mouth), Naproxen (By mouth), Prednisone (By mouth), Cyclobenzaprine (By mouth), Back Pain (GEN) Discharge/Stand Alone Forms: Anes Pain/[place] Instructions Discharge Disposition: HOME SELF-CARE
== END 2020-04-09 15:59 | disposition home or self-care (01) ==
LOC: EC 06:44 → 6NMEDSUR 08:21
PROVIDERS: ADMIT Hospitalist; ATTEND Hospitalist
DX: M51.16 Intervertebral disc disorders with radiculopathy, lumbar region (principal); M47.26 Other spondylosis with radiculopathy, lumbar region; M48.061 Spinal stenosis, lumbar region without neurogenic claudication; R26.2 Difficulty in walking, not elsewhere classified
CPT/HCPCS: 62323; 96376 ×3; 96372; 96375 ×2; 96361; 96374; 99285; 36415; 80048; 85025; 81003; 70030; 72148; G0378 ×2; J2250; J1030; J1100; J2930 ×2; J3360; J1650; J3010; J1170 ×3; J1885; Q9966

== ENCOUNTER 2020-05-07 12:07 | Day surgery (SDC) | payer OTHER ==
[2020-05-03 15:45] VITALS: BMI 36.9
[2020-05-07 12:29] VITALS: RESP 16; TEMP 97.2
[2020-05-07] MEDS ORDERED: IOPAMIDOL M200 10 ML VIAL ONE (12:38)
[2020-05-07] MEDS ORDERED: TRIAMCINOLONE ACETONIDE 40 MG/ML 1 ML VIAL ONE (12:38)
[2020-05-07] MEDS ORDERED: SODIUM CHLORIDE 0.9% (PF) 10 ML VIAL ONE (12:38)
[2020-05-07] MEDS ORDERED: LIDOCAINE 1% INJ 10MG/ML (20 ML MDV) ONE (12:38)
--- NOTE | 2020-05-07 12:55 | P.PCN ---
Date of Procedure: 05/07/20 Description of Procedure: PREOPERATIVE DIAGNOSIS: 1- Lumbar herniated Disc Diseases 2-Lumbar spondylosis with Facet arthropathy without myelopathy. 3-lumbar radiculopathy POSTOPERATIVE DIAGNOSIS: 1-Lumber herniatedDisc Diseases 2-Lumbar spondylosis with Facet arthropathy without myelopathy 3-lumbar radiculopathy. PROCEDURE 1. Lumbar epidural steroid injection under fluoroscopic guidance at the L5-S1 level. (right paramedian approach ) (Fluoroscopy imaging was available in radiology department) 2. Lumbar epidurogram. ANESTHESIA: Local with 1% lidocaine 3 ml EBL: Minimal PROCEDURE INDICATION: The patient with low back pain and radiculitis symptoms unresponsive to conservative treatment. Fluoroscopy was used to optimize visualization of the needle placement and to maximize safety. PROCEDURE DESCRIPTION / TECHNIQUE: The patient was seen and identified in the preoperative area. Risks, benefits, complications including but not limited to infections ,bleeding ,allergic reaction to the medications ,nerve damage and not complete pain releife , and alternatives were discussed with the patient. The patient agreed to proceed with the procedure and signed the consent. IV was started, and vital signs were stable. Patient was taken to the OR and time out was completed. The patient was placed in the prone position on procedure table and a pillow was placed under the abdomen to reduce lumbar lordosis. The lumbosacral area was prepped and draped in the usual sterile fashion.ere closely monitored during the procedure. Conscious sedation was used during the procedure to decrease patients anxiety. Vital signs was monitered during the entire procedure. Using anterior-posterior fluoroscopy, the L5-S1 interlaminar space was identified and the skin over this site was marked and then infiltrated with 1% lidocaine subcutaneously. Subsequently, a 20-gauge Tuohy epidural needle was inserted and advanced toward the epidural space using the ``Loss of resistance technique and guided by AP and lateral fluoroscopy. The correct needle position in the epidural space was verified with the injection of 2 mL of the water soluble contrast dye Isovue 200 contrast and observing an excellent epidurogram with the epidural spread of the dye, after negative aspiration for blood and CSF and in the absence of paresthesias. Again after negative aspiration, a 6 ml mixture containing 40mg of Kenalog , and 2 ml of preservative free Normal Saline, and 2 ml of preservative free lidocaine 1% solution was injected and a washout of epidurogram was seen. Needle was withdrawn intact, skin was cleansed, and bandages were applied. COMPLICATIONS: None DISPOSITION / PLANS: The patient was placed in a supine position and transferred to the recovery area in a stable condition for observation. There was no evidence of lower extremity motor or sensory deficit after the procedure. Patient was discharged from the recovery room after meeting discharge criteria. Home discharge instructions were given to the patient by the staff. The patient was reexamined prior to discharge. The patient will schedule a follow up in the clinic in 2-4 weeks.
--- NOTE | 2020-05-07 13:06 | FL ---
Fluoroscopy INDICATION: Pain FINDINGS: Fluoroscopy time: 5 seconds. Images obtained: 2. IMPRESSIONS: 1. Documentation of fluoroscopy.
[2020-05-07 13:19] VITALS: BP 118/79; PULSE 81
--- NOTE | 2020-05-09 09:37 | CDI ---
Outpatient Documentation Clarification Form Date: 05/09/20 CDS/Armature Coil Winder Name: Danielle Villareal Phone: If any questions, call Bailey Carter Tool Coordinator at [phone] Patient Name: Ger Stafford Admit Date: 05/07/20 Discharge Date: 05/07/20 ATTENTION: The [facility] Coding Staff appreciate your assistance in clarifying documentation. Please respond to the clarification below the line at the bottom and electronically sign. The [facility] Coding staff will review the response and follow-up if needed. Please note: Queries are made part of the Legal Health Record. If you have any questions, please contact the Tool Coordinator. Dear Dr. Tran, Please provide clarification as to the type of anesthesia used. The procedure note under anesthesia documents Local with 1% lidocaine 3 ml. Also on the procedure note under Procedure Description/Technique in the second paragraph it is documented that conscious sedation was used during the procedure. Please clarify by choosing one of the following: Moderate/conscious sedation MAC/unconscious sedation Local anesthetic Thank you for your kind consideration MTDD
== END 2020-05-07 13:29 | disposition home or self-care (01) ==
LOC: ORPAIN 12:07
PROVIDERS: ATTEND Anesthesiology
DX: M51.16 Intervertebral disc disorders with radiculopathy, lumbar region (principal); M47.26 Other spondylosis with radiculopathy, lumbar region
CPT/HCPCS: 62323; J3301; Q9966

== ENCOUNTER → 2020-06-03 | Outpatient (CLI) | payer OTHER ==
[2020-06-03 09:27] VITALS: BP 117/87; PULSE 85; RESP 16; TEMP 98.1
--- NOTE | 2020-06-03 09:50 | P.PN ---
Subjective Progress Note Date: 06/03/20 This is a 45-year-old gentleman with history of right leg pain which goes all the way down from his back to the right big toe. The patient had to interlaminar lumbar epidural steroid injection with limited results. He takes Flexeril 10 mg twice a day and rarely uses [place] for his pain. He has epidural time out. He tried physical therapy with limited benefits. Patient denies new-onset weakness, bowel/bladder incontinence, or any other signs or symptoms of cauda equina syndrome. There are no signs of acute intoxication, and no indications of medication diversion or overuse. In addition to above, 13-point review of systems is also negative for chest pain, shortness of breath, changes in vision, changes in hearing, new onset weakness, abdominal pain, diarrhea, extreme fatigue, malaise, fever, skin changes, homicidal or suicidal ideation, or bowel or bladder incontinence. Vital Signs: Reviewed in EMR Gen: AAOx3, NAD HEENT: PERRLA,hearing grossly normal Pulm: resp unlabored Neck: supple, trachea midline Neuro exam of the lower extremities: Normal and symmetrical deep tendon reflexes of the lower extremities, normal muscle strength bilaterally and symmetrically. Straight leg raising test: Negative on the right side Tenderness in the paravertebral musculature: No tenderness in the lumbar paravertebral musculature. Neuro: CN II-XII grossly intact, Imaging: Reviewed in EMR/chart. The lumbar spine MRI showed disc bulging with compression of the right L5 nerve root Assessment: Right lumbar radiculopathy Plan: 1. Explanation: Opioid and psychological risk scores were reviewed. Diagnoses, prognoses, and multiple treatment options including but not limited to physical therapy, interventional therapies, adjuvant medical therapies, narcotic medication therapies, and surgery were discussed with the patient and all questions were answered to the patient's satisfaction. 2. Opioid agreement: Signed with the patient and the patient is warned not to use opioids while driving or before driving and not to combine opioids with neyda odiazepines or alcohol. 3. Counseling: The patient was counseled extensively on SMOKING CESSATION, BODY MASS INDEX, EXERCISE. Specifically, the patient was instructed regarding the importance of smoking cessation, obesity, and exercise in the context of both chronic pain and overall health. 4. Procedures: Scheduled for transforaminal epidural steroid injection at the right L5-S1 level under fluoroscopic guidance which might give more benefits than the interlaminar approach the epidural space. 5. Consultations: None 6. Investigations: None 7. Medications: Neurontin 300 mg 1 by mouth daily at bedtime , and Flexeril 10 mg twice a day. 8. Disposition: Return to the above-mentioned procedure as soon as possible 9. Maps were reviewed and were appropriate. Objective - Vital Signs Vital signs: Vital Signs Temp 98.1 F 06/03/20 09:19 Pulse 85 06/03/20 09:19 Resp 16 06/03/20 09:19 BP 117/87 06/03/20 09:19 Pulse Ox 98 06/03/20 09:19
== END | disposition home or self-care (01) ==
LOC: PNWHC3 09:11
PROVIDERS: ATTEND Anesthesiology
DX: M54.16 Radiculopathy, lumbar region (principal); Z79.899 Other long term (current) drug therapy; Z79.891 Long term (current) use of opiate analgesic
CPT/HCPCS: 99211

== ENCOUNTER 2020-07-09 08:31 | Day surgery (SDC) | payer OTHER ==
[2020-07-03 16:05] VITALS: BMI 36.9
[2020-07-09 09:02] VITALS: RESP 16; TEMP 97
[2020-07-09] MEDS ORDERED: IOPAMIDOL M200 10 ML VIAL ONE (09:34)
[2020-07-09] MEDS ORDERED: DEXAMETHASONE SOD PHOSPHATE 10 MG/ML 1 ML VIAL ONE (09:34)
--- NOTE | 2020-07-09 09:51 | P.PCN ---
Date of Procedure: 07/09/20 Description of Procedure: PREOPERATIVE DIAGNOSIS: Lumbar radiculopathy POSTOPERATIVE DIAGNOSIS: Lumbar radiculopathy Attending physician: Nelson Tran M.D. PROCEDURE 1. Transforaminal epidural steroid injection under fluoroscopic guidance right level, L5-S1 side 2. Lumbar epidurogram ANESTHESIA: Local with 1% lidocaine 3 ml ; PROCEDURE INDICATION: The patient with low back pain and radiculopathy symptoms unresponsive to conservative treatment. Fluoroscopy was used for the procedure and fluoroscopic images were saved to the radiology portion of patient's chart. PROCEDURE DESCRIPTION / TECHNIQUE: The patient was seen and identified in the preoperative area. Risks, benefits, complications, and alternatives were discussed with the patient. The patient agreed to proceed with the procedure and signed the consent. IV was started, and vital signs were stable. Patient was taken to the OR and time out was completed. The patient was placed in the prone position on procedure table and a pillow was placed under the abdomen to reduce lumbar lordosis. The lumbosacral area was prepped and draped in the usual sterile fashion. Vital signs were closely monitored during the procedure. Conscious sedation was used. Using oblique fluoroscopy, the chin of the ``Corby dog and the skin and deeper tissues just below was localized with 1% lidocaine. Subsequently, a 22- gauge 5 inch spinal needle was advanced under a tunneled view fluoroscopic guidance just underneath the chin of the ``Corby dog . Under lateral fluoroscopy, the needle was then advanced to the posterior border of the foramen. After negative aspiration of CSF and blood and with no paresthesias, 1 mL of Isovue-200 contrast dye was injected under live fluoroscopy and there was no evidence of intravascular injection. The injectate solution consisting of 10 mg of dexamethasone with 1 mL of 1% lidocaine was then delivered. The needle was withdrawn intact. At the end of the procedure, skin was cleansed, and bandages were applied. COMPLICATIONS: None. COMMENTS: DISPOSITION / PLANS: The patient was placed in a supine position and transferred to the recovery area in a stable condition for observation. There was no evidence of lower extremity motor or sensory deficit after the procedure. Patient was discharged from the recovery room after meeting discharge criteria. Home discharge instructions were given to the patient by the staff. The patient will follow up in clinic in 2-4 weeks.Of note patient did note gabapentin 300 mg at night has been quite effective. He would like to discuss possibly adding a morning dose on his next follow-up visit.
[2020-07-09 10:09] VITALS: BP 112/76; PULSE 69
--- NOTE | 2020-07-09 13:01 | FL ---
Fluoroscopy HISTORY: Pain 9 seconds fluoroscopy time supplied to the referring clinician. 1 intraoperative C-arm images docume nt the procedure. See dictated report from anesthesia.
== END 2020-07-09 10:16 | disposition home or self-care (01) ==
LOC: ORPAIN 08:31
PROVIDERS: ATTEND Anesthesiology
DX: M54.16 Radiculopathy, lumbar region (principal)
CPT/HCPCS: 64483; J1100; Q9966

== ENCOUNTER 2022-05-11 14:47 | Emergency (ER) | payer OTHER ==
[2022-05-11 14:58] VITALS: TEMP 98.5
--- NOTE | 2022-05-11 17:10 | ED ---
Skin/Abscess/FB HPI - General Chief complaint: Skin/Abscess/Foreign Body Stated complaint: Rash Time Seen by Provider: 05/11/22 16:23 Source: patient Mode of arrival: ambulatory Limitations: no limitations - History of Present Illness Initial comments: Patient is a 47-year-old male presenting with chief complaint of rash. Patient has had a recurring rash for several months. It is located primarily on the right arm, however rash has now spread to include the right forearm as well as the left side. Rash is erythematous with a flesh-colored ring on the inner parameter. Patient has been treated with antibiotics, antifungals, and topical creams by his PCP. Patient admits to fatigue. States that at times the rash is pruritic or "raw" which causes some pain. Patient states that his PCP recently sent scrapings from the rash out for testing. He denies any fever, chills, nausea, vomiting, chest pain, difficulty breathing, numbness, tingling, wea kness, tick bite. - Related Data Home Medications Medication Instructions Recorded Confirmed Citalopram Hydrobromide 20 mg PO DAILY 04/08/20 07/25/20 [Citalopram HBr] Omeprazole [PriLOSEC] 20 mg PO DAILY 05/03/20 07/25/20 Gabapentin 300 mg PO DAILY 07/03/20 07/25/20 Previous Rx's Medication Instructions Recorded Clotrimazole [Clotrimazole 1% Top 1 applic TOPICAL BID 30 Days #30 ml 05/11/22 Soln] Doxycycline [Vibramycin] 100 mg PO BID 21 Days #42 capsule 05/11/22 Allergies Allergy/AdvReac Type Severity Reaction Status Date / Time No Known Allergies Allergy Verified 05/11/22 14:58 Review of Systems ROS Statement: Those systems with pertinent positive or pertinent negative responses have been documented in the HPI. ROS Other: All systems not noted in ROS Statement are negative. Past Medical History Past Medical History: GERD/Reflux Additional Past Medical History / Comment(s): Bulging discs. NT Rt leg History of Any Multi-Drug Resistant Organisms: None Reported Past Surgical History: No Surgical Hx Reported Additional Past Surgical History / Comment(s): Pain procedures Past Anesthesia/Blood Transfusion Reactions: No Reported Reaction Additional Past Anesthesia/Blood Transfusion Reaction / Comment(s): N/A Past Psychological History: No Psychological Hx Reported Smoking Status: Never smoker Past Alcohol Use History: Occasional Past Drug Use History: None Reported - Past Family History Father Additional Family Medical History / Comment(s): Auto-Immune Disorder (similar to Lupus) Mother Family Medical History: AFIB General Exam Limitations: no limitations General appearance: alert, in no apparent distress Head exam: Present: atraumatic, normocephalic, normal inspection Eye exam: Present: normal appearance ENT exam: Present: normal exam, normal oropharynx, TM's normal bilaterally Neck exam: Present: normal inspection Respiratory exam: Present: normal lung sounds bilaterally. Absent: respiratory distress, wheezes, rales, rhonchi, stridor Cardiovascular Exam: Present: regular rate, normal rhythm, normal heart sounds. Absent: systolic murmur, diastolic murmur, rubs, gallop, clicks Neurological exam: Present: alert, oriented X3, CN II-XII intact Psychiatric exam: Present: normal affect, normal mood Skin exam: Present: rash (Erythematous center with ring of central clearing ) Course Vital Signs 05/11/22 05/11/22 14:56 17:40 Temperature 98.5 F Pulse Rate 77 70 Respiratory 20 18 Rate Blood Pressure 134/90 134/73 O2 Sat by Pulse 99 98 Oximetry Medical Decision Making - Medical Decision Making Patient is a 47-year-old male presenting with chief complaint of rash. Rash is on the right arm and left thigh. Patient admits to fatigue, no other symptoms. Rash itches at times and is often uncomfortable. On inspection rash resembles erythema migrans, erythematous with central clearing. Negative Nikolsky sign, no vesicles or blisters. Normal oral mucosa. Testing for Lyme disease is sent out and patient is started on doxycycline, also given an antifungal cream in the event that this is consistent with tinea infection i.e. ringworm. Instructed to follow-up with his PCP for test results. Provided dermatology follow-up. Follow-up with PCP. Report back to ER with any new or worsening symptoms. Discussed return parameters and answered all questions. Patient conveyed verbal understanding and agreed to the plan. I discussed this case in detail with my attending Dr. 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 Report back to ER with any new or worsening symptoms. Take medication as prescribed. Prescriptions: Clotrimazole [Clotrimazole 1% Top Soln] 1 applic TOPICAL BID 30 Days #30 ml Doxycycline [Vibramycin] 100 mg PO BID 21 Days #42 capsule Is patient prescribed a controlled substance at d/c from ED?: No Referrals: Ez Walker MD [Primary Care Provider] - 1-2 days Raquel Hernandez MD [STAFF PHYSICIAN] - 1-2 days Time of Disposition: 17:04
[2022-05-11 17:45] VITALS: BP 134/73; PULSE 70; RESP 18
[2022-05-12 10:46] LABS: Lyme IgG/IgM 0.28 Index
== END 2022-05-11 17:48 | disposition home or self-care (01) ==
LOC: EC 14:47
DX: R21 Rash and other nonspecific skin eruption (principal); K21.9 Gastro-esophageal reflux disease without esophagitis; Z79.83 Long term (current) use of bisphosphonates
CPT/HCPCS: 36415; 86618; 99283

== ENCOUNTER 2023-07-09 16:27 | Observation (INO) | payer OTHER ==
--- NOTE | 2023-07-09 17:44 | US ---
EXAMINATION TYPE: US gallbladder DATE OF EXAM: 07/09/2023 COMPARISON: NONE CLINICAL INDICATION: Male, 48 years old with history of RUQ pain; Patient scanned 2 days ago at [facility] 2 days ago, packed GB, pt scheduled for HIDA scan Wednesday, is planning of surgery TECHNIQUE: Multiple sonographic images of the right upper quadrant are obtained. 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 Cholilithiasis
--- NOTE | 2023-07-09 18:21 | ED ---
Abdominal Pain HPI - General Chief Complaint: Abdominal Pain Stated Complaint: gallbladder Time Seen by Provider: 07/09/23 17:46 Source: patient, RN notes reviewed, old records reviewed Mode of arrival: ambulatory Limitations: no limitations - History of Present Illness Initial Comments: This is a 48-year-old male to the emergency department for evaluation of severe abdominal pain. Patient has had abdominal pain and off for a year now increasingly worsening. And worsening simply this month. Patient has positive nausea without vomiting no fevers severe abdominal pain usually after eating and severe abdominal pain today. Pain is epigastric right upper quadrant. Patient did have an outpatient ultrasound is positive for cholelithiasis MD Complaint: abdominal pain -: days(s) Location: diffuse, epigastric, suprapubic Radiation: epigastric, suprapubic Migration to: suprapubic Severity: moderate Severity scale (1-10): 7 Quality: cramping, stabbing Improves With: nothing Worsens With: nothing Associated Symptoms: nausea, vomiting Treatments Prior to Arrival: NSAIDs, prescription analgesics - Related Data Home Medications Medication Instructions Recorded Confirmed Citalopram Hydrobromide 40 mg PO DIRECTED 04/08/20 07/09/23 [Citalopram HBr] Loratadine 10 mg PO DAILY 07/09/23 07/09/23 Omeprazole Magnesium [PriLOSEC OTC] 20 mg PO DAILY 07/09/23 07/09/23 Previous Rx's Medication Instructions Recorded Docusate [Colace] 100 mg PO BID #30 capsule 07/14/23 HYDROcodone/APAP 7.5-325MG [[place] 1 tab PO Q6HR PRN 3 Days #12 tab 07/14/23 7.5-325] Ibuprofen [Motrin] 600 mg PO Q8HR PRN #30 tab 07/14/23 Allergies Allergy/AdvReac Type Severity Reaction Status Date / Time ragweed pollen Allergy Dyspnea Verified 07/09/23 20:53 Review of Systems ROS Statement: Those systems with pertinent positive or pertinent negative responses have been documented in the HPI. ROS Other: All systems not noted in ROS Statement are negative. Past Medical History Past Medical History: GERD/Reflux Additional Past Medical History / Comment(s): Bulging discs. NT Rt leg History of Any Multi-Drug Resistant Organisms: None Reported Past Surgical History: No Surgical Hx Reported Additional Past Surgical History / Comment(s): Pain procedures Past Anesthesia/Blood Transfusion Reactions: No Reported Reaction Additional Past Anesthesia/Blood Transfusion Reaction / Comment(s): N/A Past Psychological History: No Psychological Hx Reported Smoking Status: Never smoker Past Alcohol Use History: Occasional Past Drug Use History: None Reported - Past Family History Father Additional Family Medical History / Comment(s): Auto-Immune Disorder (similar to Lupus) Mother Family Medical History: AFIB General Exam Limitations: no limitations General appearance: anxious, obese Head exam: Present: atraumatic, normocephalic, normal inspection Eye exam: Present: normal appearance, PERRL, EOMI. Absent: scleral icterus, conjunctival injection, periorbital swelling ENT exam: Present: normal exam, mucous membranes moist Neck exam: Present: normal inspection. Absent: tenderness, meningismus, lymphadenopathy Respiratory exam: Present: normal lung sounds bilaterally. Absent: respiratory distress, wheezes, rales, rhonchi, stridor Cardiovascular Exam: Present: regular rate, normal rhythm, normal heart sounds. Absent: systolic murmur, diastolic murmur, rubs, gallop, clicks GI/Abdominal exam: Present: distended, tenderness, guarding, normal bowel sounds. Absent: rebound, rigid Extremities exam: Present: normal inspection, full ROM, normal capillary refill. Absent: tenderness, pedal edema, joint swelling, calf tenderness Back exam: Present: normal inspection Neurological exam: Present: alert, oriented X3, CN II-XII intact Psychiatric exam: Present: normal affect, normal mood Skin exam: Present: warm, dry, intact, normal color. Absent: rash Course Vital Signs 07/09/23 07/09/23 07/09/23 16:31 19:00 21:28 Temperature 98.4 F Pulse Rate 68 60 77 Pulse Rate [ Pulse Oximetery ] Respiratory 20 16 16 Rate Blood Pressure 116/68 139/82 127/85 Blood Pressure [Right Arm] O2 Sat by Pulse 99 99 97 Oximetry 07/10/23 00:06 Temperature 97.8 F Pulse Rate Pulse Rate [ 53 L Pulse Oximetery ] Respiratory 16 Rate Blood Pressure Blood Pressure 112/71 [Right Arm] O2 Sat by Pulse 96 Oximetry - Reevaluation(s) Reevaluation #1: 07/09/23 18:20 Medical records reviewed Reevaluation #2: 01/19/24 20:44 Patient's pain is improving still with pain Reevaluation #3: 07/09/23 20:45 Patient informed results questions are answered Reevaluation #4: 07/09/23 18:21 Was pt. sent in by a medical professional or institution (ANA Eugene, MANAGED SERVICES CONSULTANT, urgent care, hospital, or care home...) When possible be specific @ -no Did you speak to anyone other than the patient for history (EMS, parent, family, police, friend...)? What history was obtained from this source @ -no Did you review nursing and triage notes (agree or disagree)? Why? @ -agree Are old charts reviewed (outside hosp., previous admission, EMS record, old EKG, old radiological studies, urgent care reports/EKG's, care home records)? Rep ort findings @ -yes Differential Diagnosis (chest pain, altered mental status, abdominal pain women, abdominal pain men, vaginal bleeding, weakness, fever, dyspnea, syncope, headache, dizziness, GI bleed, back pain, seizure, CVA, palpatations, mental health, musculoskeletal)? @ -prior EKG interpreted by me (3pts min.). @ -no X-rays interpreted by me (1pt min.). @ -no CT interpreted by me (1pt min.). @ -no U/S interpreted by me (1pt. min.). @ -yes positive for cholelithiasis What testing was considered but not performed or refused? (CT, X-rays, U/S, labs)? Why? @ -none What meds were considered but not given or refused? Why? @ -none Did you discuss the management of the patient with other professionals (professionals i.e. ANA Eugene, MANAGED SERVICES CONSULTANT, lab, RT, psych nurse, social and political studies professor, member service specialist, t eacher, ethics officer, immigration case manager)? Give summary @ -no Was smoking cessation discussed for >3mins.? @ -no Was critical care preformed (if so, how long)? @ -no Were there social determinants of health that impacted care today? How? (Homelessness, low income, unemployed, alcoholism, drug addiction, transportation, low edu. Level, literacy, decrease access to med. care, [place] [facility], rehab)? @ -none Was there de-escalation of care discussed even if they declined (Discuss DNR or withdrawal of care, Hospice)? DNR status @ -no What co-morbidities impacted this encounter? (DM, HTN, Smoking, COPD, CAD, Cancer, CVA, ARF, Chemo, Hep., AIDS, mental health diagnosis, sleep apnea, morbid obesity)? @ -none Was patient admitted / discharged? Hospital course, mention meds given and route, prescriptions, significant lab abnormalities, going to OR and other pertinent info. @ - 48 male to the emergency department for evaluation of severe abdominal pain with biliary colic and gallstone pancreatitis. Patient will be admitted for IV antibiotics pain control and surgical evaluation and treatment Admitted Undiagnosed new problem with uncertain prognosis? @ -no Drug Therapy requiring intensive monitoring for toxicity (Heparin, Nitro, Insulin, Cardizem)? @ -no Were any procedures done? @ -no Diagnosis/symptom? @ -Gallstone pancreatitis Acute, or Chronic, or Acute on Chronic? @ -Acute Uncomplicated (without systemic symptoms) or Complicated (systemic symptoms)? @ -Complicated Side effects of treatment? @ -no Exacerbation, Progression, or Severe Exacerbation? @ -exacerbation Poses a threat to life or bodily function? How? (Chest pain, USA, MS, pneumonia, PE, COPD, DKA, ARF, appy, cholecystitis, CVA, Diverticulitis, Homicidal, Suicidal, threat to staff... and all critical care pts) @ -yes if possibility of ascending cholangitis Reevaluation #5: 07/09/23 18:21 Differential Abdominal Pain Men: Appendicitis, cholecystitis, diverticulosis, ischemic bowel, pancreatitis, hepatitis, UTI, gastroenteritis, AAA, incarcerated hernia, bowel obstruction, constipation, inflammatory bowel, hepatitis, peptic ulcer disease, splenic infarction, perforated viscus, testicular torsion, this is not meant to be an all-inclusive list - Consultations Consultation #1: Spoke with Dr. Leonard and will admit this patient Medical Decision Making - Medical Decision Making 48 male to the emergency department for evaluation of severe abdominal pain with biliary colic and gallstone pancreatitis. Patient will be admitted for IV antibiotics pain control and surgical evaluation and treatment - Lab Data Result diagrams: 07/13/23 10:17 07/13/23 10:17 Lab Results 07/09/23 07/09/23 07/09/23 Range/Units 18:06 18:06 18:06 WBC 12.3 H (3.8-10.6) k/uL RBC 5.35 (4.30-5.90) m/uL Hgb 15.9 (13.0-17.5) gm/dL Hct 47.8 (39.0-53.0) % MCV 89.4 (80.0-100.0) fL MCH 29.7 (25.0-35.0) pg MCHC 33.2 (31.0-37.0) g/dL RDW 12.6 (11.5-15.5) % Plt Count 436 (150-450) k/uL MPV 6.9 Neutrophils % 86 % Lymphocytes % 8 % Monocytes % 4 % Eosinophils % 1 % Basophils % 0 % Neutrophils # 10.6 H (1.3-7.7) k/uL Lymphocytes # 1.0 (1.0-4.8) k/uL Monocytes # 0.5 (0-1.0) k/uL Eosinophils # 0.1 (0-0.7) k/uL Basophils # 0.0 (0-0.2) k/uL Sodium 138 (137-145) mmol/L Potassium 4.2 (3.5-5.1) mmol/L Chloride 103 (98-107) mmol/L Carbon Dioxide 27 (22-30) mmol/L Anion Gap 8 mmol/L BUN 14 (9-20) mg/dL Creatinine 1.01 (0.66-1.25) mg/dL Est GFR (CKD-EPI)AfAm >90 (>60 ml/min/1.73 sqM) Est GFR (CKD-EPI)NonAf 89 (>60 ml/min/1.73 sqM) Glucose 111 H (74-99) mg/dL Plasma Lactic Acid [place] 0.9 (0.7-2.0) mmol/L Calcium 9.7 (8.4-10.2) mg/dL Total Bilirubin 1.4 H (0.2-1.3) mg/dL AST 196 H (17-59) U/L ALT 175 H (4-49) U/L Alkaline Phosphatase 131 H (38-126) U/L Total Protein 7.1 (6.3-8.2) g/dL Albumin 4.2 (3.5-5.0) g/dL Amylase 1024 H* (30-110) U/L Lipase 57644 H (23-300) U/L - Radiology Data Radiology results: report reviewed (Ultrasound gallbladder is positive for cholelithiasis), image reviewed Disposition Clinical Impression: Abdominal pain, Gallstone pancreatitis, Pancreatitis Disposition: ADMITTED IP TO THIS HOSP Condition: Stable Is patient prescribed a controlled substance at d/c from ED?: No Time of Disposition: 20:45
[2023-07-09 18:54] LABS: Basophils % (A) 0 %; Eosinophils # (A) 0.1 k/uL (0-0.7); Eosinophils % (A) 1 %; HCT 47.8 % (39.0-53.0); HGB 15.9 gm/dL (13.0-17.5); Lymphocytes % (A) 8 %; MCH 29.7 pg (25.0-35.0); MCHC 33.2 g/dL (31.0-37.0); MCV 89.4 fL (80.0-100.0); Mean Platelet Volume 6.9; Monocytes # (A) 0.5 k/uL (0-1.0); Monocytes % (A) 4 %; Neutrophils # (A) 10.6 k/uL (1.3-7.7); Neutrophils % (A) 86 %; Platelet Count 436 k/uL (150-450); RBC 5.35 m/uL (4.30-5.90); RDW 12.6 % (11.5-15.5); WBC 12.3 k/uL (3.8-10.6)
[2023-07-09 19:12] LABS: ALT 175 U/L (4-49); AST 196 U/L (17-59); African American GFR (CKD) >90 (>60 ml/min/1.73 sqM); Albumin 4.2 g/dL (3.5-5.0); Alkaline Phosphatase 131 U/L (38-126); Anion Gap 8 mmol/L; Blood Urea Nitrogen 14 mg/dL (9-20); Calcium 9.7 mg/dL (8.4-10.2); Carbon Dioxide 27 mmol/L (22-30); Chloride 103 mmol/L (98-107); Glucose 111 mg/dL (74-99); Non-African American GFR(CKD) 89 (>60 ml/min/1.73 sqM); Potassium 4.2 mmol/L (3.5-5.1); Sodium 138 mmol/L (137-145); Total Bilirubin 1.4 mg/dL (0.2-1.3); Total Protein 7.1 g/dL (6.3-8.2)
[2023-07-09] MEDS: HYDROmorphone 1 MG/ML 1 ML SYRINGE IVP STA (19:37)
[2023-07-09] MEDS: ONDANSETRON 4 MG/2 ML VIAL IVP STA (19:39)
[2023-07-09] MEDS: SODIUM CHLORIDE 0.9% 1,000 ML IV STA (19:39)
[2023-07-09] MEDS: KETOROLAC 15 MG/ML 1 ML VIAL IVP STA (19:42)
[2023-07-09 20:15] LABS: Amylase 1024 U/L (30-110)
[2023-07-09 20:37] LABS: Lipase 10194 U/L (23-300)
[2023-07-09] MEDS ORDERED: NALOXONE 0.4 MG/ML 1 ML VIAL IV PRN (20:42)
[2023-07-09] MEDS: SODIUM CHLORIDE 0.9% 1,000 ML IV SCH (21:24)
[2023-07-09] MEDS: AMPICILLIN-SULBACTAM 3 GM in SODIUM CHLORIDE 0.9% 100 ML IVPB STA (21:47)
[2023-07-10] MEDS: HYDROmorphone 1 MG/ML 1 ML SYRINGE IVP PRN (00:09)
[2023-07-10] MEDS: AMPICILLIN-SULBACTAM 3 GM in SODIUM CHLORIDE 0.9% 100 ML IVPB SCH (05:46)
[2023-07-10 12:46] LABS: ALT 244 U/L (10-49); AST 171 U/L (14-35); Albumin 3.7 g/dL (3.8-4.9); Albumin/Globulin Ratio 2.06 Ratio (1.60-3.17); Alkaline Phosphatase 130 U/L (41-126); BUN/Creat Ratio 13.56 Ratio (12.00-20.00); Blood Urea Nitrogen 12.2 mg/dL (9.0-27.0); Calcium 8.6 mg/dL (8.7-10.3); Carbon Dioxide 22.6 mmol/L (21.6-31.8); Chloride 105 mmol/L (96-109); Globulin 1.8 g/dL (1.6-3.3); Glucose 96 mg/dL (70-110); Lipase 255 U/L (14-60); Magnesium 1.9 mg/dL (1.5-2.4); Phosphorus 3.7 mg/dL (2.4-5.1); Potassium 4.2 mmol/L (3.5-5.5); Sodium 139 mmol/L (135-145); Total Bilirubin 0.8 mg/dL (0.3-1.2); Total Protein 5.5 g/dL (6.2-8.2)
[2023-07-10 12:54] LABS: Basophils # (A) 0.03 X 10*3/uL (0.00-0.10); Basophils % (A) 0.3 %; Eosinophils # (A) 0.32 X 10*3/uL (0.04-0.35); Eosinophils % (A) 3.3 %; HCT 43.8 % (39.6-50.0); HGB 14.4 g/dL (13.0-17.0); Lymphocytes # (A) 1.29 X 10*3/uL (0.90-5.00); Lymphocytes % (A) 13.4 %; MCH 29.7 pg (27.0-32.0); MCHC 32.9 g/dL (32.0-37.0); MCV 90.3 FL (80.0-97.0); Mean Platelet Volume 9.9 FL (9.5-12.2); Monocytes # (A) 0.58 X 10*3/uL (0.20-1.00); NRBC Per 100 WBC 0 X 10*3/uL (0.00-0.01); Neutrophils # (A) 7.37 X 10*3/uL (1.80-7.70); Neutrophils % (A) 76.7 %; Platelet Count 411 X 10*3/uL (140-440); RBC 4.85 X 10*6/uL (4.40-5.60); RDW 12.7 % (11.5-14.5); WBC 9.62 X 10*3/uL (4.50-10.00)
--- NOTE | 2023-07-10 15:42 | P.PN ---
Subjective Progress Note Date: 07/10/23 Principal diagnosis: Gall Stone pancreatitis abdominal pain improving, need GI consult for ERCP to be followed by cholecystectomy Objective - Vital Signs Vital signs: Vital Signs Temp 98.5 F 07/10/23 14:37 Pulse 67 07/10/23 14:37 Resp 18 07/10/23 14:37 BP 105/68 07/10/23 14:37 Pulse Ox 96 07/10/23 14:37 FiO2 Intake & Output 07/09/23 07/10/23 07/10/23 18:59 06:59 18:59 Weight 131.542 kg 131.542 kg Other: Voiding Method Toilet Toilet # Voids 1 # Bowel Movements 0 - Constitutional General appearance: Present: cooperative - EENT Eyes: Present: EOMI - Respiratory Respiratory: bilateral: CTA, negative: rales, rhonchi - Cardiovascular Rhythm: regular Heart sounds: normal: S1, S2 - Gastrointestinal General gastrointestinal: Present: hyperactive bowel sounds, normal bowel sounds, soft, tenderness - Labs CBC & Chem 7: 07/10/23 06:04 07/10/23 06:04 Labs: Abnormal Lab Results - Last 24 Hours (Table) 07/09/23 07/09/23 07/10/23 Range/Units 18:06 18:06 06:04 WBC 12.3 H (3.8-10.6) k/uL Neutrophils # 10.6 H (1.3-7.7) k/uL Glucose 111 H (74-99) mg/dL Calcium 8.6 L (8.7-10.3) mg/dL Total Bilirubin 1.4 H (0.2-1.3) mg/dL AST 196 H 171 H (17-59) U/L ALT 175 H 244 H (4-49) U/L Alkaline Phosphatase 131 H 130 H (38-126) U/L Total Protein 5.5 L (6.2-8.2) g/dL Albumin 3.7 L (3.8-4.9) g/dL Amylase 1024 H* (30-110) U/L Lipase 39533 H 255 H (23-300) U/L Assessment and Plan (1) Abdominal pain Current Visit: Yes Status: Acute Code(s): R10.9 - UNSPECIFIED ABDOMINAL PAIN SNOMED Code(s): 68523533 (2) Gallstone pancreatitis Current Visit: Yes Status: Acute Code(s): K85.10 - BILIARY ACUTE PANCREATITIS WITHOUT NECROSIS OR INFECTION SNOMED Code(s): 46128940 Plan: GI Consult for ERCP followed by cholecystectomy check LFT
--- NOTE | 2023-07-11 10:40 | P.GSHP ---
History of Present Illness H&P Date: 07/11/23 Chief Complaint: Right quadrant pain This is a 48-year-old male who has complaints of epigastric pain. Patient was seen returned found have gallstone pancreatitis Past Medical History Past Medical History: GERD/Reflux Additional Past Medical History / Comment(s): Bulging discs. 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 History of Any Multi-Drug Resistant Organisms: None Reported Past Surgical History: No Surgical Hx Reported Additional Past Surgical History / Comment(s): Pain procedures Past Anesthesia/Blood Transfusion Reactions: No Reported Reaction Additional Past Anesthesia/Blood Transfusion Reaction / Comment(s): N/A Past Psychological History: No Psychological Hx Reported Smoking Status: Never smoker Past Alcohol Use History: Occasional Additional Past Alcohol Use History / Comment(s): occasional social drink Past Drug Use History: None Reported - Past Family History Father Additional Family Medical History / Comment(s): Auto-Immune Disorder (similar to Lupus) Mother Family Medical History: AFIB Medications and Allergies Home Medications Medication Instructions Recorded Confirmed Type Citalopram Hydrobromide 40 mg PO DIRECTED 04/08/20 07/09/23 History [Citalopram HBr] Loratadine 10 mg PO DAILY 07/09/23 07/09/23 History Omeprazole Magnesium [PriLOSEC OTC] 20 mg PO DAILY 07/09/23 07/09/23 History Allergies Allergy/AdvReac Type Severity Reaction Status Date / Time ragweed pollen Allergy Dyspnea Verified 07/09/23 20:53 Surgical - Exam Vital Signs Temp Pulse Resp BP Pulse Ox 98.4 F 68 20 116/68 99 07/09/23 16:31 07/09/23 16:31 07/09/23 16:31 07/09/23 16:31 07/09/23 16:31 - General well developed, well nourished, moderate distress - Eyes PERRL - ENT normal pinna - Neck no masses - Respiratory normal expansion - Cardiovascular Rhythm: regular - Abdomen Mild epigastric tenderness. Abdomen: soft Results - Labs 07/10/23 06:04 07/10/23 06:04 Abnormal Lab Results - Last 24 Hours (Table) 07/10/23 Range/Units 06:04 Calcium 8.6 L (8.7-10.3) mg/dL AST 171 H (14-35) U/L ALT 244 H (10-49) U/L Alkaline Phosphatase 130 H (41-126) U/L Total Protein 5.5 L (6.2-8.2) g/dL Albumin 3.7 L (3.8-4.9) g/dL Lipase 255 H (14-60) U/L Diabetes panel 07/10/23 Range/Units 06:04 Sodium 139 (135-145) mmol/L Potassium 4.2 (3.5-5.5) mmol/L Chloride 105 (96-109) mmol/L Carbon Dioxide 22.6 (21.6-31.8) mmol/L BUN 12.2 (9.0-27.0) mg/dL Creatinine 0.9 (0.6-1.5) mg/dL Glucose 96 (70-110) mg/dL Calcium 8.6 L (8.7-10.3) mg/dL AST 171 H (14-35) U/L ALT 244 H (10-49) U/L Alkaline Phosphatase 130 H (41-126) U/L Total Protein 5.5 L (6.2-8.2) g/dL Albumin 3.7 L (3.8-4.9) g/dL Calcium panel 07/10/23 Range/Units 06:04 Calcium 8.6 L (8.7-10.3) mg/dL Phosphorus 3.7 (2.4-5.1) mg/dL Albumin 3.7 L (3.8-4.9) g/dL Pituitary panel 07/10/23 Range/Units 06:04 Sodium 139 (135-145) mmol/L Potassium 4.2 (3.5-5.5) mmol/L Chloride 105 (96-109) mmol/L Carbon Dioxide 22.6 (21.6-31.8) mmol/L BUN 12.2 (9.0-27.0) mg/dL Creatinine 0.9 (0.6-1.5) mg/dL Glucose 96 (70-110) mg/dL Calcium 8.6 L (8.7-10.3) mg/dL Adrenal panel 07/10/23 Range/Units 06:04 Sodium 139 (135-145) mmol/L Potassium 4.2 (3.5-5.5) mmol/L Chloride 105 (96-109) mmol/L Carbon Dioxide 22.6 (21.6-31.8) mmol/L BUN 12.2 (9.0-27.0) mg/dL Creatinine 0.9 (0.6-1.5) mg/dL Glucose 96 (70-110) mg/dL Calcium 8.6 L (8.7-10.3) mg/dL Total Bilirubin 0.8 (0.3-1.2) mg/dL AST 171 H (14-35) U/L ALT 244 H (10-49) U/L Alkaline Phosphatase 130 H (41-126) U/L Total Protein 5.5 L (6.2-8.2) g/dL Albumin 3.7 L (3.8-4.9) g/dL - Imaging US - abdomen: report reviewed (Cholelithiasis) Assessment and Plan Assessment: History also because. Patient will undergo laparoscopic cholecystectomy with his liver function tests trended downward.
[2023-07-12 06:32] LABS: ALT 116 U/L (4-49); AST 27 U/L (17-59); African American GFR (CKD) >90 (>60 ml/min/1.73 sqM); Albumin/Globulin Ratio 1.2; Alkaline Phosphatase 116 U/L (38-126); Anion Gap 4 mmol/L; Blood Urea Nitrogen 3 mg/dL (9-20); Calcium 8.4 mg/dL (8.4-10.2); Carbon Dioxide 27 mmol/L (22-30); Chloride 104 mmol/L (98-107); Globulin 2.5 g/dL; Glucose 94 mg/dL (74-99); Non-African American GFR(CKD) >90 (>60 ml/min/1.73 sqM); Potassium 3.6 mmol/L (3.5-5.1); Sodium 135 mmol/L (137-145); Total Bilirubin 0.8 mg/dL (0.2-1.3); Total Protein 5.5 g/dL (6.3-8.2)
--- NOTE | 2023-07-12 14:00 | P.PN ---
Subjective Progress Note Date: 07/12/23 CHIEF COMPLAINT: abdominal pain HISTORY OF PRESENT ILLNESS: Patient scheduled for laparoscopic cholecystectomy today. He reports his pain is controlled with medication. Denies any nausea or vomiting. Afebrile. Total bilirubin 0.8 AST has normalized from 171-27 ALT is down from 244-116 alk phos is normalized at 160 PHYSICAL EXAM: VITAL SIGNS: Reviewed. GENERAL: Well-developed in no acute distress. ABDOMEN: Soft. Nondistended. Epigastric tenderness NEUROLOGIC: Alert and oriented. Cranial nerves II through XII grossly intact. ASSESSMENT: 1. Gallstone pancreatitis PLAN: -Patient scheduled for laparoscopic cholecystectomy today with Dr. alfredo -Keep patient nothing by mouth -Continue IV fluids -continue antibiotics -Continue pain management Physician Atm Manager note has been reviewed by physician. Signing provider agrees with the documented findings, assessment, and plan of care. Objective - Vital Signs Vital signs: Vital Signs Temp 98 F 07/12/23 12:09 Pulse 67 07/12/23 12:09 Resp 16 07/12/23 12:09 BP 106/73 07/12/23 12:09 Pulse Ox 95 07/12/23 12:09 FiO2 Intake & Output 07/11/23 07/12/23 07/12/23 18:59 06:59 18:59 Intake Total 1760 Balance 1760 Intake: Intake, IV Titration 1760 Amount Ampicillin-Sulbactam 3 gm 200 In Sodium Chloride 0.9% 100 ml @ 200 mls/hr IVPB Q8H DOM Rx#:[id number] Sodium Chloride 0.9% 1, 1560 000 ml @ 130 mls/hr IV . Q7H42M DOM Rx#:[id number] Other: Voiding Method Toilet # Voids 4 2 - Labs CBC & Chem 7: 07/10/23 06:04 07/12/23 05:43 Labs: Abnormal Lab Results - Last 24 Hours (Table) 07/12/23 Range/Units 05:43 Sodium 135 L (137-145) mmol/L BUN 3 L (9-20) mg/dL ALT 116 H (4-49) U/L Total Protein 5.5 L (6.3-8.2) g/dL Albumin 3.0 L (3.5-5.0) g/dL
[2023-07-12] MEDS: IV FLUID CONTINUATION 500 ML IV ONE (15:20)
[2023-07-12] MEDS: HEPARIN SODIUM,PORCINE 5,000 UNIT/ML 1 ML VIAL SQ ONE (15:22)
[2023-07-12] MEDS: ONDANSETRON 4 MG/2 ML VIAL IVP ONE (15:31)
[2023-07-12] MEDS: DEXAMETHASONE SOD PHOSPHATE 4 MG/ML 1 ML VIAL IVP ONE (15:32)
[2023-07-12] MEDS: LIDOCAINE 2%-EPI 1:100,000 20 ML VIAL SQ ONE ×2 (15:33→16:04)
[2023-07-12] MEDS ORDERED: LIDOCAINE 1% INJ 10MG/ML (20 ML MDV) ONE (15:37)
[2023-07-12] MEDS ORDERED: ROCURONIUM 10 MG/ML (5 ML VIAL) IV ONE (15:37)
[2023-07-12] MEDS ORDERED: KETAMINE HCL IN 0.9 % NACL 50 MG/5 ML SYRINGE ONE (15:37)
[2023-07-12] MEDS ORDERED: NEOSTIGMINE 1 MG/ML 10 ML VIAL ONE (15:37)
[2023-07-12] MEDS ORDERED: PROPOFOL 10 MG/ML 20 ML VIAL IV ONE (15:37)
[2023-07-12] MEDS ORDERED: SUCCINYLCHOLINE CHLORIDE 200 MG/10 ML VIAL IV ONE (15:37)
[2023-07-12] MEDS ORDERED: fentaNYL (PF) 50 MCG/ML 2 ML AMP ONE (15:37)
[2023-07-12] MEDS ORDERED: MIDAZOLAM 2 MG/2 ML VIAL ONE (15:37)
[2023-07-12] MEDS ORDERED: KETOROLAC 30 MG/ML 1 ML VIAL ONE (15:37)
[2023-07-12] MEDS ORDERED: GLYCOPYRROLATE 0.2 MG/ML 2 ML VIAL ONE (15:37)
[2023-07-12] MEDS: LACTATED RINGERS 1,000 ML IV ONE (15:59)
[2023-07-12] MEDS ORDERED: ONDANSETRON 4 MG/2 ML VIAL IVP PRN (16:35)
--- NOTE | 2023-07-12 16:35 | P.OP ---
Date of Procedure: 07/12/23 Preoperative Diagnosis: Gallstone pancreatitis Cholelithiasis Gallstone pancreatitis Cholelithiasis CholecystitisCholecystitis Postoperative Diagnosis: SameSame Procedure(s) Performed: Laparoscopic cholecystectomyLaparoscopic cholecystectomy Anesthesia: DOLORES Surgeon: Paul Leonard Estimated Blood Loss (ml): 10 Pathology: other (GallbladderGallbladder) Condition: stable Disposition: PACU Operative Findings: Chronically scarred gallbladder with significant lithiasis. The gallbladder is Gilles packed full of stones significant cholelithiasis. The gallbladder is jam packed full of stonesChronically scarred gallbladder with Description of Procedure: The patient was placed on the operating table. The patient received a general endotracheal tube anesthesia. The patients abdomen was prepped and draped in the usual sterile fashion. Through an infraumbilical stab incision, the fascia of the anterior abdominal wall was grasped with a pair of Kochers and then the Veress needle was placed in the peritoneal cavity. Position of the Veress needle was confirmed with positive drop test. The abdomen was then insufflated. After adequate insufflation, the 10 mm trocar was placed in the peritoneal cavity. Following this the laparoscope was placed in the peritoneal cavity. The patient was placed in the head-up, right side up position and then a 5 mm trocar was placed in the right lateral and right subcostal position under direct visualization. A 8 mm trocar was placed in the epigastric position. The gallbladder was grasped in the fundus and infundibulum. Traction on the gallbladder was placed in the lateral and the cephalad positions. The triangle of [place] was visualized.. The cystic duct was bluntly dissected until the union of the cystic duct and common bile duct was seen. A critical view of safety was achieved. The cystic duct was then divided and sealed with the Harmonic scissors. A PDS Endoloop was then placed throughout the cystic duct stump. The cystic artery divided and sealed with the Harmonic scissors. The gallbladder was then removed from the liver bed using Harmonic scissors. The gallbladder was then extracted through the epigastric port site. Operative field was checked for any bleeding spots and Harmonic scissors was used to coagulate the liver bed. The abdomen was irrigated. The trocars were removed. The skin was closed using interrupted 3-0 Vicryl suture. Dermabond dressing were applied. The patient tolerated the procedure well.The patient was placed on the operating table. The patient received a general endotracheal tube anesthesia. The patients abdomen was prepped and draped in the usual sterile fashion. Through an infraumbilical stab incision, the fascia of the anterior abdominal wall was grasped with a pair of Kochers and then the Veress needle was placed in the peritoneal cavity. Position of the Veress needle was confirmed with positive drop test. The abdomen was then insufflated. After adequate insufflation, the 10 mm trocar was placed in the peritoneal cavity. Following this the laparoscope was placed in the peritoneal cavity. The patient was placed in the head-up, right side up position and then a 5 mm trocar was placed in the right lateral and right subcostal position under direct visualization. A 8 mm trocar was placed in the epigastric position. The gallbladder was grasped in the fundus and infundibulum. Traction on the gallbladder was placed in the lateral and the cephalad positions. The triangle of Calot was visualized.. The cystic duct was bluntly dissected until the union of the cystic duct and common bile duct was seen. A critical view of safety was achieved. The cystic duct was then divided and sealed with the Harmonic scissors. A PDS Endoloop was then placed throughout the cystic duct stump. The cystic artery divided and sealed with the Harmonic scissors. The gallbladder was then removed from the liver bed using Harmonic scissors. The gallbladder was then extracted through the epigastric port site. Operative field was checked for any bleeding spots and Harmonic scissors was used to coagulate the liver bed. The abdomen was irrigated. The trocars were removed. The skin was closed using interrupted 3-0 Vicryl suture. Dermabond dressing were applied. The patient tolerated the procedure well.
[2023-07-12] MEDS: METOCLOPRAMIDE 5 MG/ML 2 ML VIAL IVP ONE (17:21)
[2023-07-12] MEDS: HYDROmorphone 0.5 MG/0.5 ML SYRINGE IVP ONE (17:43)
[2023-07-12] MEDS: HYDROmorphone 1 MG/ML 1 ML SYRINGE IVP PRN (20:25)
[2023-07-12] MEDS: ONDANSETRON 4 MG/2 ML VIAL IVP PRN (20:34)
[2023-07-12] MEDS: HYDROcodone/APAP 7.5-325MG 1 EACH TAB PO PRN (22:45)
[2023-07-13 10:27] LABS: Basophils % (A) 0 %; Eosinophils # (A) 0.2 k/uL (0-0.7); Eosinophils % (A) 2 %; HCT 39.5 % (39.0-53.0); HGB 13.1 gm/dL (13.0-17.5); Lymphocytes # (A) 1.6 k/uL (1.0-4.8); Lymphocytes % (A) 17 %; MCH 29.8 pg (25.0-35.0); MCHC 33.2 g/dL (31.0-37.0); MCV 89.7 fL (80.0-100.0); Mean Platelet Volume 7.6; Monocytes # (A) 0.5 k/uL (0-1.0); Monocytes % (A) 6 %; Neutrophils # (A) 6.7 k/uL (1.3-7.7); Neutrophils % (A) 74 %; Platelet Count 359 k/uL (150-450); RBC 4.41 m/uL (4.30-5.90); RDW 12.6 % (11.5-15.5); WBC 9.1 k/uL (3.8-10.6)
[2023-07-13 10:48] LABS: African American GFR (CKD) >90 (>60 ml/min/1.73 sqM); Albumin 3.1 g/dL (3.5-5.0); Albumin/Globulin Ratio 1.2; Anion Gap 4 mmol/L; Blood Urea Nitrogen 7 mg/dL (9-20); Carbon Dioxide 27 mmol/L (22-30); Chloride 106 mmol/L (98-107); Globulin 2.6 g/dL; Glucose 122 mg/dL (74-99); Non-African American GFR(CKD) >90 (>60 ml/min/1.73 sqM); Potassium 3.9 mmol/L (3.5-5.1); Sodium 137 mmol/L (137-145); Total Protein 5.7 g/dL (6.3-8.2)
[2023-07-13 10:50] LABS: ALT 89 U/L (4-49); AST 29 U/L (17-59); Alkaline Phosphatase 101 U/L (38-126); Calcium 8.5 mg/dL (8.4-10.2); Lipase 30 U/L (23-300); Total Bilirubin 0.4 mg/dL (0.2-1.3)
[2023-07-13] MEDS: KETOROLAC 15 MG/ML 1 ML VIAL IVP SCH (11:52)
--- NOTE | 2023-07-13 13:21 | P.PN ---
Subjective Progress Note Date: 07/13/23 CHIEF COMPLAINT: abdominal pain HISTORY OF PRESENT ILLNESS: Patient status post laparoscopic cholecystectomy. Patient complaining of epigastric abdominal pain. Denies any nausea or vomiting. Denies any flatus. He reports that the Dilaudid and [place] are not lasting long enough. Afebrile. Repeat labs were ordered due to epigastric pain. His white count was 9.1 hemoglobin 13.1 platelets 359 total bilirubin 0.4 AST 29 ALT is down to 89 and alk phos 101 lipase normal at 30 PHYSICAL EXAM: VITAL SIGNS: Reviewed. GENERAL: Well-developed in no acute distress. ABDOMEN: Soft. Nondistended. Epigastric tenderness. Incision sites clean dry and intact NEUROLOGIC: Alert and oriented. Cranial nerves II through XII grossly intact. ASSESSMENT: 1. Gallstone pancreatitis 2. Cholelithiasis 3. Cholecystitis PLAN: -Add Toradol to help with pain control -Continue regular diet -Continue antibiotics -Encouraged patient to ambulate -Discontinue IV fluids -Anticipate discharge tomorrow -GI prophylaxis Pepcid and DVT prophylaxis subcu heparin Physician Head Of Data note has been reviewed by physician. Signing provider agrees with the documented findings, assessment, and plan of care. Objective - Vital Signs Vital signs: Vital Signs Temp 97.9 F 07/13/23 07:43 Pulse 66 07/13/23 07:43 Resp 17 07/13/23 07:43 BP 119/73 07/13/23 07:43 Pulse Ox 96 07/13/23 07:43 FiO2 Intake & Output 07/12/23 07/13/23 07/13/23 18:59 06:59 18:59 Intake Total 1250 Output Total 5 Balance 1245 Intake: IV 1250 Output: Estimated Blood Loss 5 Other: Voiding Method Toilet # Voids 1 - Labs CBC & Chem 7: 07/13/23 10:17 07/13/23 10:17 Labs: Abnormal Lab Results - Last 24 Hours (Table) 07/13/23 Range/Units 10:17 BUN 7 L (9-20) mg/dL Glucose 122 H (74-99) mg/dL ALT 89 H (4-49) U/L Total Protein 5.7 L (6.3-8.2) g/dL Albumin 3.1 L (3.5-5.0) g/dL
[2023-07-13] MEDS: FAMOTIDINE 20 MG TAB PO SCH (20:38)
[2023-07-13] MEDS: HEPARIN SODIUM,PORCINE 5,000 UNIT/ML 1 ML VIAL SQ SCH (20:38)
[2023-07-13 21:31] VITALS: RESP 16
[2023-07-14 09:55] VITALS: BP 118/74; PULSE 65; TEMP 98.2
--- NOTE | 2023-07-14 10:22 | P.DS ---
Providers Date of admission: 07/09/23 20:42 Expected date of discharge: 07/14/23 Attending physician: Paul Leonard Primary care physician: Ger Jeff Hospital Course: Discharge diagnosis 1. Gallstone pancreatitis 2. Cholelithiasis 3. Cholecystitis Hospital course This is a 48-year-old male who presented with epigastric abdominal pain and was found to have evidence of gallstone pancreatitis. He is status post laparoscopic cholecystectomy. Patient's pain is controlled. He is tolerating diet. He has been up and ambulating. He is having flatus. He is afebrile. He is stable for discharge. Please refer to chart for any further details. Physician Configuration Engineer note has been reviewed by physician. Signing provider agrees with the documented findings, assessment, and plan of care. Patient Condition at Discharge: Stable Plan - Discharge Summary New Discharge Prescriptions: New Docusate [Colace] 100 mg PO BID #30 capsule HYDROcodone/APAP 7.5-325MG [[place] 7.5-325] 1 tab PO Q6HR PRN 3 Days #12 tab PRN Reason: Pain Ibuprofen [Motrin] 600 mg PO Q8HR PRN #30 tab PRN Reason: Pain Continue Citalopram Hydrobromide [Citalopram HBr] 40 mg PO DIRECTED Omeprazole Magnesium [PriLOSEC OTC] 20 mg PO DAILY Loratadine 10 mg PO DAILY Discharge Medication List Citalopram Hydrobromide [Citalopram HBr] 40 mg PO DIRECTED 04/08/20 [History] Loratadine 10 mg PO DAILY 07/09/23 [History] Omeprazole Magnesium [PriLOSEC OTC] 20 mg PO DAILY 07/09/23 [History] Docusate [Colace] 100 mg PO BID #30 capsule 07/14/23 [Rx] HYDROcodone/APAP 7.5-325MG [[place] 7.5-325] 1 tab PO Q6HR PRN 3 Days #12 tab 07/14/23 [Rx] Ibuprofen [Motrin] 600 mg PO Q8HR PRN #30 tab 07/14/23 [Rx] Follow up Appointment(s)/Referral(s): Ger Jeff MD [Primary Care Provider] - 1-2 days Paul Leonard MD [STAFF PHYSICIAN] - 1 Week Activity/Diet/Wound Care/Special Instructions: No driving while taking [place] No lifting over 10 pounds Shower daily. No soaking or tub baths for 2 weeks Very light activity until you are reevaluated at your follow up appointment with your surgeon Discharge Disposition: HOME SELF-CARE
== END 2023-07-14 12:20 | disposition home or self-care (01) ==
LOC: EC 16:27 → 5NMEDONC 20:42 → INTOOBSV 20:42 → 5NMEDONC 21:32 → UNDODISIN 07-14 12:20
PROVIDERS: ADMIT Surgery; ATTEND Surgery
DX: K85.10 Biliary acute pancreatitis without necrosis or infection (principal); K80.10 Calculus of gallbladder with chronic cholecystitis without obstruction; K21.9 Gastro-esophageal reflux disease without esophagitis; G62.9 Polyneuropathy, unspecified; Z79.899 Other long term (current) drug therapy; Z91.048 Other nonmedicinal substance allergy status
CPT/HCPCS: 47562; 96376 ×2; 96361 ×2; 96366 ×2; 96372 ×2; 96365; 96375; 99285; 36415; 88304; 80053 ×4; 82150; 83605; 83690 ×3; 83735; 84100; 85025 ×3; 76705; G0378 ×6; J2250; J0330; J1644 ×3; J1100; J2710; J2765; J2405 ×2; J2001; J3010; J1885 ×4; J1170 ×7; J0295 ×6; J2704